=== PATIENT | female | born 1975 | race Caucasian/White ===

== ENCOUNTER 2019-06-20 05:11 | Inpatient (IN) | payer BC ==
[2019-06-20] MEDS ORDERED: Sodium Chloride 0.9% 10 ML SDV IV PRN (05:15)
[2019-06-20] MEDS ORDERED: Water For Irrigation,Sterile 1,000 ML Container IRR PRN (05:15)
[2019-06-20] MEDS ORDERED: Oxytocin/0.9 % Sodium Chloride 30 UNIT/500 ML BAG IV SCH ×2 (05:15)
[2019-06-20] MEDS ORDERED: Sodium Chloride 0.9% 10 ML Syringe FLUSH PRN (05:15)
[2019-06-20] MEDS ORDERED: Carboprost Tromethamine 250 MCG/1 ML Amp IM PRN (05:15)
[2019-06-20] MEDS ORDERED: Butorphanol 1 MG/ML SDV IVPUSH PRN (05:15)
[2019-06-20] MEDS ORDERED: Nalbuphine 10 MG/1 ML Vial IVPUSH PRN (05:15)
[2019-06-20] MEDS ORDERED: Methylergonovine 0.2 MG/1 ML Amp IM PRN (05:15)
[2019-06-20] MEDS ORDERED: Sodium Chloride 0.9% 2.5 ML Syringe FLUSH PRN (05:15)
[2019-06-20] MEDS ORDERED: Ondansetron 4 MG/2 ML SDV IVPUSH PRN (05:15)
[2019-06-20] MEDS ORDERED: Tranexamic Acid 1,000 MG in Sodium Chloride 0.9% 100 ML IV PRN (05:15)
[2019-06-20] MEDS ORDERED: Terbutaline 1 MG/ML SDV SUBCUT PRN (05:15)
[2019-06-20] MEDS ORDERED: Misoprostol 25 MCG (1/4 of 100 MCG) Tab VAG PRN ×2 (05:15)
[2019-06-20] MEDS ORDERED: Lidocaine 1% 50 ML MDV INJECT PRN (05:15)
[2019-06-20] MEDS ORDERED: Ampicillin 2 GM in Sodium Chloride 0.9% 100 ML IV ONE (05:15)
[2019-06-20] MEDS ORDERED: Misoprostol 200 MCG Tab PO PRN (05:15)
[2019-06-20] MEDS: Lactated Ringers 1,000 ML IV SCH ×3 (05:50→15:47)
[2019-06-20 06:08] LABS: BLOOD UREA NITROGEN,BUN 6 mg/dL (7.0-18.0); CARBON DIOXIDE,CO2 24.5 mmol/L (21.0-32.0); CHLORIDE,CL 102 mmol/L (98-107); GLUCOSE RANDOM 87 mg/dL (74-106); POTASSIUM,K 3.3 mmol/L (3.5-5.1); SODIUM,NA 137 mmol/L (136-145)
[2019-06-20] MEDS ORDERED: Labetalol 100 MG/20 ML MDV IVPUSH ONE (08:55)
[2019-06-20] MEDS: Ampicillin 1 GM in Sodium Chloride 0.9% 50 ML IV SCH ×2 (10:11→14:12)
[2019-06-20] MEDS ORDERED: Bupivacaine 0.25% 10 ML SDV ONE ×2 (13:09→16:05)
[2019-06-20] MEDS ORDERED: fentaNYL 100 MCG/2 ML SDV ONE (13:09)
--- NOTE | 2019-06-20 13:39 | PCM.PREANE ---
Preanesthetic Assessment - Procedure Proposed Procedure: anali - Anesthesia/Transfusion/Family Hx Anesthesia History: No Prior Anesthesia Additional History: hx of von willebrands disease - Review of Systems General: No Symptoms Pulmonary: No Symptoms Cardiovascular: No Symptoms Gastrointestinal: No Symptoms Neurological: No Symptoms Other: Reports: None - Physical Assessment Height: 1.7 m Weight: 92.533 kg - Lab Values: Laboratory Last Values WBC 8.57 K/uL (4.0-11.0) 06/20/19 05:28 RBC 4.30 M/uL (4.30-5.90) 06/20/19 05:28 Hgb 12.9 g/dL (12.0-16.0) 06/20/19 05:28 Hct 38.4 % (36.0-46.0) 06/20/19 05:28 MCV 89.3 fL (80.0-98.0) 06/20/19 05:28 MCH 30.0 pg (27.0-32.0) 06/20/19 05:28 MCHC 33.6 g/dL (31.0-37.0) 06/20/19 05:28 RDW Std Deviation 43.4 fl (28.0-62.0) 06/20/19 05:28 RDW Coeff of Toan 13 % (11.0-15.0) 06/20/19 05:28 Plt Count 191 K/uL (150-400) 06/20/19 05:28 MPV 11.30 fL (7.40-12.00) 06/20/19 05:28 Nucleated RBC % 0.0 /100WBC 06/20/19 05:28 Nucleated RBCs # 0 K/uL 06/20/19 05:28 INR 0.90 06/20/19 05:55 APTT 23.6 SEC (18.6-31.3) 06/20/19 05:55 Sodium 137 mmol/L (136-145) 06/20/19 05:28 Potassium 3.3 mmol/L (3.5-5.1) L 06/20/19 05:28 Chloride 102 mmol/L (98-107) 06/20/19 05:28 Carbon Dioxide 24.5 mmol/L (21.0-32.0) 06/20/19 05:28 BUN 6 mg/dL (7.0-18.0) L 06/20/19 05:28 Creatinine 1.0 mg/dL (0.6-1.0) 06/20/19 05:28 Est Cr Clr Drug Dosing 70.54 mL/min 06/20/19 05:28 Estimated GFR (MDRD) > 60.0 ml/min 06/20/19 05:28 Glucose 87 mg/dL (74-106) 06/20/19 05:28 Calcium 8.9 mg/dL (8.5-10.1) 06/20/19 05:28 Total Bilirubin 0.5 mg/dL (0.2-1.0) 06/20/19 05:28 AST 13 IU/L (15-37) L 06/20/19 05:28 ALT 18 IU/L (14-63) 06/20/19 05:28 Alkaline Phosphatase 100 U/L (46-116) 06/20/19 05:28 Total Protein 7.0 g/dL (6.4-8.2) 06/20/19 05:28 Albumin 2.8 g/dL (3.4-5.0) L 06/20/19 05:28 Globulin 4.2 g/dL (2.6-4.0) H 06/20/19 05:28 Albumin/Globulin Ratio 0.7 (0.9-1.6) L 06/20/19 05:28 Urine Color YELLOW 06/20/19 06:30 Urine Appearance CLEAR 06/20/19 06:30 Urine pH 6.5 (5.0-8.0) 06/20/19 06:30 Ur Specific [place] 1.010 (1.001-1.035) 06/20/19 06:30 Urine Protein NEGATIVE mg/dL (NEGATIVE) 06/20/19 06:30 Urine Glucose (UA) NEGATIVE mg/dL (NEGATIVE) 06/20/19 06:30 Urine Ketones NEGATIVE mg/dL (NEGATIVE) 06/20/19 06:30 Urine Occult Blood NEGATIVE (NEGATIVE) 06/20/19 06:30 Urine Nitrite NEGATIVE (NEGATIVE) 06/20/19 06:30 Urine Bilirubin NEGATIVE (NEGATIVE) 06/20/19 06:30 Urine Urobilinogen 0.2 EU/dL (<2.0) 06/20/19 06:30 Ur Leukocyte Esterase SMALL (NEGATIVE) H 06/20/19 06:30 Ur Random Creatinine 51.0 mg/dL 06/20/19 06:30 U Random Total Protein 11.3 mg/dL (<11.9) 06/20/19 06:30 Protein/Creatinin Ratio 0.2 06/20/19 06:30 Blood Type A POSITIVE 06/20/19 05:28 Antibody Screen NEGATIVE 06/20/19 05:28 - Allergies Allergies/Adverse Reactions: Allergies Allergy/AdvReac Type Severity Reaction Status Date / Time Sulfa (Sulfonamide Allergy Rash Verified 04/28/19 17:10 Antibiotics) PreAnesthesia Questionnaire PROOFREADER History: Reports: Psychiatric History: Reports: Anxiety Other Psychiatric History: In the past. Resolved now Hematologic History: Reports: Anticoagulation Therapy - Past Surgical History HEENT Surgical History: Reports: LASIK, Oral Surgery Musculoskeletal Surgical History: Reports: Other (See Below) Other Musculoskeletal Surgeries/Procedures:: ACL repair 2000 - SUBSTANCE USE Smoking Status *Q: Never Smoker Second Hand Smoke Exposure: No Recreational Drug Use History: No - HOME MEDS Home Medications: Home Meds Aspirin [Children's Aspirin] 81 mg PO DAILY 04/28/19 [History] Enoxaparin [Lovenox] 60 mg SQ BID 04/28/19 [History] Magnesium Oxide 400 mg PO DAILY 04/28/19 [History] Vit #76/Iron,Carb/Fa [Pnv 29-1 Tablet] 1 tab PO DAILY 04/28/19 [History ] - CURRENT (IN HOUSE) MEDS Current Meds: Current Medications Butorphanol Tartrate (Stadol) 1 mg IVPUSH Q1H PRN PRN Reason: Pain Carboprost Tromethamine (Hemabate Ds) 250 mcg IM ASDIRECTED PRN PRN Reason: Post Hemorrhage Lactated Ringer's (Ringers, Lactated) 1,000 mls @ 150 mls/hr IV ASDIRECTED LEANNE Last Admin: 06/20/19 05:50 Dose: 150 mls/hr Oxytocin/Sodium Chloride (Oxytocin 30 Unit/500 Ml-Ns) 30 unit in 500 mls @ 500 mls/hr IV TITRATE LEANNE Oxytocin/Sodium Chloride (Oxytocin 30 Unit/500 Ml-Ns) 30 unit in 500 mls @ 2 mls/hr IV TITRATE LEANNE; Protocol Last Titration: 06/20/19 12:27 Dose: 10 munits/min, 10 mls/hr Tranexamic Acid 1,000 mg/ (Sodium Chloride) 110 mls @ 660 mls/hr IV ONETIME PRN PRN Reason: Bleeding Ampicillin Sodium 1 gm/ Sodium (Chloride) 50 mls @ 100 mls/hr IV Q4H LEANNE Last Admin: 06/20/19 10:11 Dose: 100 mls/hr Lidocaine HCl (Xylocaine 1%) 50 ml INJECT ONETIME PRN PRN Reason: Laceration repair Methylergonovine Maleate (Methergine) 0.2 mg IM ASDIRECTED PRN PRN Reason: Post Hemorrhage Misoprostol (Cytotec) 200 mcg PO ONETIME PRN PRN Reason: Post Hemorrhage Misoprostol (Cytotec) 25 mcg VAG ONETIME PRN PRN Reason: Cervical Ripening Misoprostol (Cytotec) 25 mcg VAG Q4H PRN PRN Reason: Cervical Ripening Nalbuphine HCl (Nubain) 10 mg IVPUSH Q1H PRN PRN Reason: Pain (severe 7-10) Ondansetron HCl (Zofran) 4 mg IVPUSH Q4H PRN PRN Reason: Nausea/Vomiting Sodium Chloride (Saline Flush) 10 ml FLUSH ASDIRECTED PRN PRN Reason: Keep Vein Open Sodium Chloride (Saline Flush) 2.5 ml FLUSH ASDIRECTED PRN PRN Reason: Keep Vein Open Sodium Chloride (Normal Saline) 10 ml IV ASDIRECTED PRN PRN Reason: IV Use Sterile Water (Sterile Water For Irrigation) 1,000 ml IRR ASDIRECTED PRN PRN Reason: delivery Terbutaline Sulfate (Brethine) 0.25 mg SUBCUT ASDIRECTED PRN PRN Reason: Tacysystole Discontinued Medications Bupivacaine HCl (Sensorcaine-Mpf 0.25%) Confirm Administered Dose 10 ml .ROUTE .STK-MED ONE Stop: 06/20/19 13:10 Fentanyl (Sublimaze) Confirm Administered Dose 100 mcg .ROUTE .STK-MED ONE Stop: 06/20/19 13:10 Ampicillin Sodium 2 gm/ Sodium (Chloride) 100 mls @ 200 mls/hr IV ONETIME ONE Stop: 06/20/19 05:44 Last Admin: 06/20/19 05:50 Dose: 200 mls/hr Fentanyl/Bupivacaine HCl (Geuaykrm-Ikips-Bq 2 Mcg/Ml-0.125%) Confirm Administered Dose 100 mls @ as directed .ROUTE .STK-MED ONE Stop: 06/20/19 13:10 Labetalol HCl (Normodyne) 10 mg IVPUSH ONETIME ONE; Protocol Stop: 06/20/19 08:56 Last Admin: 06/20/19 09:23 Dose: 10 mg
[2019-06-20] MEDS ORDERED: Lidocaine 2% 5 ML SDV ONE (16:05)
[2019-06-20] MEDS ORDERED: Lidocaine 1% 50 ML MDV ONE (16:41)
--- NOTE | 2019-06-20 17:13 | PCM.OPNOTE ---
- General Post-Op/Procedure Note Date of Surgery/Procedure: 06/20/19 Operative Procedure(s): /1st laceration repaired Findings: Viable female APGARS 9, 9 weight 2910 gm. Spontaneous delivery of placenta with sanguinous fluid and clot noted--suspicious for marginal placental abruption Pre Op Diagnosis: 37/3 week IUP. Gestational hypertension. AMA. DVT Post-Op Diagnosis: Same Anesthesia Technique: Epidural Primary Surgeon: Vero Cotton Brass Molder: Velia Rodriguez Pathology: Placenta EBL in mLs: 300 Complications: none known Condition: Stable Free Text/Narrative:: Dictation [id number]
[2019-06-20] MEDS ORDERED: Aluminum Hydroxide/Magnesium Hydroxide/Simethicone Susp 30 ML Cup PO PRN (17:14)
[2019-06-20] MEDS ORDERED: Witch Hazel Medicated Pads 40/Jar TOP PRN (17:14)
[2019-06-20] MEDS ORDERED: Bisacodyl 10 MG Supp RECTAL PRN (17:14)
[2019-06-20] MEDS ORDERED: Acetaminophen 500 MG Tab PO PRN (17:14)
[2019-06-20] MEDS ORDERED: oxyCODONE 5 MG Tab PO PRN (17:14)
[2019-06-20] MEDS ORDERED: Ibuprofen 400 MG Tab PO PRN (17:14)
[2019-06-20] MEDS ORDERED: Benzocaine/Menthol 20%-0.5% Spray 78 GM Cannister TOP PRN (17:14)
[2019-06-20] MEDS ORDERED: Lanolin 100% Cream 7 GM Tube TOP PRN (17:14)
[2019-06-20] MEDS ORDERED: Hydrocortisone 2.5% Crm 30 GM Tube TOP PRN (17:14)
[2019-06-20] MEDS ORDERED: Ibuprofen 800 MG Tab PO PRN (17:14)
--- NOTE | 2019-06-20 18:10 | OR ---
SURGEON: Vero Cotton M.D. DATE OF PROCEDURE: 06/20/2019 PREOPERATIVE DIAGNOSES: 1. 37 and 3-week intrauterine . 2. Gestational hypertension. 3. Advanced maternal age. 4. Deep vein thrombosis during . POSTOPERATIVE DIAGNOSES: 1. 37 and 3-week intrauterine . 2. Gestational hypertension. 3. Advanced maternal age. 4. Deep vein thrombosis during . PROCEDURES: Spontaneous vaginal delivery with first-degree laceration, vaginally repaired. GELATIN MAKER UTILITY: MIRACLE Wang. ANESTHESIA: Epidural. ESTIMATED BLOOD LOSS: 300 mL. COMPLICATIONS: None known. FINDINGS: Viable female. score 9 at one minute and 9 at five minutes. Weight of 2910 g. Delivery of sanguinous fluid and blood clot spontaneously of the placenta with 3-vessel cord noted. The findings at the time of delivery of placenta are consistent with a marginal placental abruption. Placenta will be sent to Pathology for further analysis. DISPOSITION: The patient in LDRP and infant to nursery, stable. PROCEDURE DETAILS: Krystle is a 44-year-old; G4, P3; at 37 and 3 weeks' gestational age; who presented on the morning of 06/20/2019, for scheduled induction of labor due to gestational hypertension. The patient's labs are normal. Blood pressures are ranging 130s to 150s over 70s to 90s. heart tones 130s to 140s with variability. She is group B beta strep positive, so underwent IV ampicillin prophylaxis. Shortly after 9 a.m., the patient did have an acute deceleration 60s to 70s, recovered nicely with positional changes, IV fluid hydration and discontinuing the Pitocin. At that time, she was found to be 2 cm. Therefore, after recovery, was resumed Pitocin low dose and did not go over 10 milliunits for the duration of the day. The patient became increasingly uncomfortable and underwent regional anesthesia in the form of epidural. She did receive one dose of 10 mg IV labetalol during this interval. Blood pressures remained in the 130-150s/80-90s. She is denying headache. Blood pressures did go down to the 130s over 70s. She underwent regional anesthesia. She became more comfortable directly after this. She did have a few variables with late component decelerations noted. Once again, we reduced the Pitocin, positional change, IV fluid hydration, and the patient responded nicely to this. The patient underwent amniotomy shortly after 2 p.m. Slightly sanguinous fluid was noted. The patient was found to be 4.5 cm, 70% effaced, and -2 station at this juncture. The patient continued to progress more rapidly thereafter. Over the next 2 hours, she went from 4 cm to 7 cm and within the next 20 minutes, progressed to complete, 100% effaced, +2 station, and feeling the urge to push. Upon my arrival, the patient was placed in modified dorsal lithotomy position, was prepped and draped in the usual aseptic manner. With pushing efforts, was able to push to deliver 's head atraumatically spontaneously, followed by anterior shoulder, posterior shoulder, and remaining body without difficulty. There was clot noted at the time of delivery and sanguinous fluid once again. The 's oropharynx and nares were bulb suctioned. was handed off to mother with attending nursing staff at her side. Loop Sewer was also present. Cord was clamped x2 and cut. Cord arterial, cord venous, cord blood sampling were obtained. Light pressure was applied while the placenta was delivered spontaneously intact. Spontaneously, there was a small blood clot noted along the one peripheral edge of the placenta, and this will be sent to Pathology for analysis. Vigorous fundal uterine massage was then applied while 30 units of Pitocin was delivered in 500 mL of IV fluid. Upon inspection of cervix, vaginal sidewall and perineum, there was found to be 2 first-degree vaginal lacerations, repaired using 3-0 Vicryl in [id number] fashion. Hemostasis was thereafter evident. Uterus remained firm. Hemostasis remained evident. Sponge, instrument, and needle counts were correct. The patient will remain in LDRP. We will monitor blood pressures closely. in nursery. JEAN CARLOS / BRENDEN /[id number] MIKE
[2019-06-20] MEDS: Docusate Sodium 100 MG Cap PO PRN (20:36)
[2019-06-20] MEDS: Acetaminophen 500 MG Tab PO PRN (23:14)
--- NOTE | 2019-06-21 07:36 | PCM.PNPP ---
- General Info Date of Service: 06/21/19 Admission Dx/Problem (Free Text): Krystle is a 44 yo G4 now P4 On PPD 1 after a at 37+3. She is doing well this AM with about 3 hours of sleep and minimal pain. States she is excited to go home as soon as she is able. Bleeding has minimized from yesterday. She is urinating well. No BMs as of this AM. She states she has an appetite. Functional Status: Reports: Pain Controlled (with Tylenol), Ambulating, Urinating, Other (Minimal pain but noticeable left inguinal discomfort that she states was present throughout ) - Review of Systems General: Reports: Appetite Pulmonary: Reports: No Symptoms Cardiovascular: Reports: No Symptoms Gastrointestinal: Reports: No Symptoms Genitourinary: Reports: No Symptoms Neurological: Reports: No Symptoms Psychiatric: Reports: No Symptoms - General Info Date of Service: 06/21/19 - Patient Data Vital Signs - Most Recent: Last Vital Signs Temp 36.6 C 06/21/19 05:06 Pulse 71 06/21/19 05:06 Resp 17 06/21/19 05:06 BP 111/82 06/21/19 05:06 Pulse Ox 98 06/21/19 05:06 Weight - Most Recent: 92.533 kg Lab Results - Last 24 Hours: Laboratory Results - last 24 hr 06/20/19 06/21/19 Range/Units 16:40 05:25 WBC 16.84 H (4.0-11.0) K/uL RBC 3.67 L (4.30-5.90) M/uL Hgb 11.0 L (12.0-16.0) g/dL Hct 32.6 L (36.0-46.0) % MCV 88.8 (80.0-98.0) fL MCH 30.0 (27.0-32.0) pg MCHC 33.7 (31.0-37.0) g/dL RDW Std Deviation 43.6 (28.0-62.0) fl RDW Coeff of Toan 14 (11.0-15.0) % Plt Count 121 L (150-400) K/uL MPV 10.80 (7.40-12.00) fL Nucleated RBC % 0.0 /100WBC Nucleated RBCs # 0 K/uL Cord ABG pH 7.294 (7.18-7.38) Cord ABG Base Excess -8 (-10--2) Cord VBG pH 7.303 (7.25-7.45) Cord VBG Base Excess -7 (-10--2) Med Orders - Current: Current Medications Acetaminophen (Tylenol Extra Strength) 500 mg PO Q4H PRN PRN Reason: Pain Acetaminophen (Tylenol Extra Strength) 1,000 mg PO Q4H PRN PRN Reason: Pain Last Admin: 06/20/19 23:14 Dose: 1,000 mg Al Hydroxide/Mg Hydroxide (Mag-Al Plus) 30 ml PO Q8H PRN PRN Reason: Heartburn Benzocaine/Menthol (Dermoplast Pain Relief 20%-0.5% [place]) 78 gm TOP ASDIRECTED PRN PRN Reason: Perineal Comfort Measure Last Admin: 06/20/19 23:31 Dose: 1 canister Bisacodyl (Dulcolax) 10 mg RECTAL ONETIME PRN PRN Reason: Constipation Carboprost Tromethamine (Hemabate Ds) 250 mcg IM ASDIRECTED PRN PRN Reason: Post Hemorrhage Docusate Sodium (Colace) 100 mg PO BID PRN PRN Reason: Constipation Last Admin: 06/20/19 20:36 Dose: 100 mg Emollient Ointment (Lansinoh Hpa) 0 gm TOP ASDIRECTED PRN PRN Reason: Sore Nipples Last Admin: 06/20/19 23:30 Dose: 1 tube Hydrocortisone (Proctozone-Hc 2.5% Crm) 1 gm TOP 6XDAY PRN PRN Reason: Itching Lactated Ringer's (Ringers, Lactated) 1,000 mls @ 150 mls/hr IV ASDIRECTED LEANNE Last Admin: 06/20/19 15:47 Dose: 150 mls/hr Oxytocin/Sodium Chloride (Oxytocin 30 Unit/500 Ml-Ns) 30 unit in 500 mls @ 500 mls/hr IV TITRATE LEANNE Oxytocin/Sodium Chloride (Oxytocin 30 Unit/500 Ml-Ns) 30 unit in 500 mls @ 2 mls/hr IV TITRATE LEANNE; Protocol Last Titration: 06/20/19 16:45 Dose: 500 munits/min, 500 mls/hr Tranexamic Acid 1,000 mg/ (Sodium Chloride) 110 mls @ 660 mls/hr IV ONETIME PRN PRN Reason: Bleeding Ibuprofen (Motrin) 400 mg PO Q4H PRN PRN Reason: Pain Ibuprofen (Motrin) 800 mg PO Q6H PRN PRN Reason: Pain Methylergonovine Maleate (Methergine) 0.2 mg IM ASDIRECTED PRN PRN Reason: Post Hemorrhage Nalbuphine HCl (Nubain) 10 mg IVPUSH Q1H PRN PRN Reason: Pain (severe 7-10) Ondansetron HCl (Zofran) 4 mg IVPUSH Q4H PRN PRN Reason: Nausea/Vomiting Oxycodone HCl (Oxycodone) 5 mg PO Q2H PRN PRN Reason: Pain Sodium Chloride (Saline Flush) 10 ml FLUSH ASDIRECTED PRN PRN Reason: Keep Vein Open Sodium Chloride (Saline Flush) 2.5 ml FLUSH ASDIRECTED PRN PRN Reason: Keep Vein Open Sodium Chloride (Normal Saline) 10 ml IV ASDIRECTED PRN PRN Reason: IV Use Sterile Water (Sterile Water For Irrigation) 1,000 ml IRR ASDIRECTED PRN PRN Reason: delivery Alejandro Rogers (Damion) 1 pad TOP ASDIRECTED PRN PRN Reason: comfort care Last Admin: 06/20/19 23:31 Dose: 1 canister Discontinued Medications Bupivacaine HCl (Sensorcaine-Mpf 0.25%) Confirm Administered Dose 10 ml .ROUTE .STK-MED ONE Stop: 06/20/19 13:10 Last Admin: 06/20/19 21:33 Dose: Not Given Bupivacaine HCl (Sensorcaine-Mpf 0.25%) Confirm Administered Dose 10 ml .ROUTE .STK-MED ONE Stop: 06/20/19 16:06 Last Admin: 06/20/19 21:33 Dose: Not Given Butorphanol Tartrate (Stadol) 1 mg IVPUSH Q1H PRN PRN Reason: Pain Fentanyl (Sublimaze) Confirm Administered Dose 100 mcg .ROUTE .STK-MED ONE Stop: 06/20/19 13:10 Last Admin: 06/20/19 21:33 Dose: Not Given Ampicillin Sodium 2 gm/ Sodium (Chloride) 100 mls @ 200 mls/hr IV ONETIME ONE Stop: 06/20/19 05:44 Last Admin: 06/20/19 05:50 Dose: 200 mls/hr Ampicillin Sodium 1 gm/ Sodium (Chloride) 50 mls @ 100 mls/hr IV Q4H LEANNE Last Admin: 06/20/19 14:12 Dose: 100 mls/hr Fentanyl/Bupivacaine HCl (Hjhftlhl-Aluhq-Xk 2 Mcg/Ml-0.125%) Confirm Administered Dose 100 mls @ as directed .ROUTE .STK-MED ONE Stop: 06/20/19 13:10 Last Admin: 06/20/19 21:32 Dose: Not Given Labetalol HCl (Normodyne) 10 mg IVPUSH ONETIME ONE; Protocol Stop: 06/20/19 08:56 Last Admin: 06/20/19 09:23 Dose: 10 mg Lidocaine (Xylocaine-Mpf 2%) Confirm Administered Dose 5 ml .ROUTE .STK-MED ONE Stop: 06/20/19 16:06 Last Admin: 06/20/19 21:33 Dose: Not Given Lidocaine HCl (Xylocaine 1%) 50 ml INJECT ONETIME PRN PRN Reason: Laceration repair Lidocaine HCl (Xylocaine 1%) Confirm Administered Dose 50 ml .ROUTE .STK-MED ONE Stop: 06/20/19 16:42 Last Admin: 06/20/19 21:33 Dose: Not Given Misoprostol (Cytotec) 200 mcg PO ONETIME PRN PRN Reason: Post Hemorrhage Misoprostol (Cytotec) 25 mcg VAG ONETIME PRN PRN Reason: Cervical Ripening Misoprostol (Cytotec) 25 mcg VAG Q4H PRN PRN Reason: Cervical Ripening Terbutaline Sulfate (Brethine) 0.25 mg SUBCUT ASDIRECTED PRN PRN Reason: Tacysystole - Infant Interaction Infant Disposition, : in Room with Family (Dad holding [place]) Interaction: Holding Feeding: Breastfed ; Nursed Well, Continues to Breastfeed Support Person: - Recovery Exam Fundal Tone: Firm Fundal Level: 1 Fingerbreadths Below Umbilicus Fundal Placement: Midline Lochia Amount: Small Lochia Color: Rubra/Red Episiotomy/Laceration: Approximated Bladder Status: Voiding Urinary Elimination: Voided - Exam General: Alert, Oriented Lungs: Clear to Auscultation, Normal Respiratory Effort Cardiovascular: Regular Rate, Regular Rhythm, No Murmurs GI/Abdominal Exam: Soft, Non-Tender (Some tenderness with firm palpation of uterus) Extremities: No Pedal Edema Skin: Warm, Dry, Intact Neurological: No New Focal Deficit Psy/Mental Status: Alert, Normal Affect, Normal Mood - Problem List & Annotations (1) Gestational hypertension SNOMED Code(s): 261471760 Code(s): O13.9 - GESTATIONAL HTN W/O SIGNIFICANT PROTEINURIA, UNSP TRIMESTER Status: Resolved Current Visit: Yes Annotation/Comment:: BPs have been stable at 111-118/76-82 over the course of last night and this AM. (2) AMA (advanced maternal age) multigravida 35+ SNOMED Code(s): 997608097 Code(s): O09.529 - SUPERVISION OF ELDERLY MULTIGRAVIDA, UNSPECIFIED TRIMESTER Status: Acute Current Visit: Yes (3) Thromboembolism during SNOMED Code(s): 271139 Code(s): O88.219 - THROMBOEMBOLISM IN , UNSPECIFIED TRIMESTER Status: Acute Current Visit: Yes Annotation/Comment:: Will begin Lovenox this afternoon. (4) Vaginal delivery SNOMED Code(s): 021715568 Code(s): O80 - ENCOUNTER FOR FULL-TERM UNCOMPLICATED DELIVERY Status: Resolved Current Visit: Yes - Problem List Review Problem List Initiated/Reviewed/Updated: Yes - Assessment Assessment:: Krystle is a 44 yo G4 now P4 s/p uncomplicated at 37+3 weeks currently PPD# 1 course complicated by gestational hypertension, AMA, and DVT. Patient currently doing well. Patient hemodynamically stable. Lochia is currently appropriate. Pain adequately controlled. Currently successfully. - Plan Plan:: 1. Continue to monitor vital signs and signs suggestive of infection. 2. Continue to monitor lochia. 3. Continue Tylenol for pain relief. 4. Encourage mother-baby bonding and interaction. 5. Encourage ambulation. 6. Encourage adequate hydration. 7. Pelvic rest for 6 weeks. 8. Anticipate discharge tomorrow (06/22/19). Patient to follow up in [address] Cotton.
[2019-06-21] MEDS: Acetaminophen 500 MG Tab PO PRN ×2 (08:23→21:52)
--- NOTE | 2019-06-21 08:44 | PCM.PNPP ---
- General Info Date of Service: 06/21/19 Functional Status: Reports: Pain Controlled, Tolerating Diet, Ambulating, Urinating - Review of Systems General: Reports: Fatigue. Denies: Fever, Weakness Pulmonary: Denies: Shortness of Breath Cardiovascular: Denies: Chest Pain, Palpitations, Lightheadedness Gastrointestinal: Denies: Abdominal Pain, Nausea, Vomiting Genitourinary: Denies: Flank Pain Musculoskeletal: Reports: No Symptoms Skin: Reports: No Symptoms Neurological: Reports: No Symptoms Psychiatric: Reports: No Symptoms - General Info Date of Service: 06/21/19 - Patient Data Vital Signs - Most Recent: Last Vital Signs Temp 37.0 C 06/21/19 07:48 Pulse 77 06/21/19 07:48 Resp 18 06/21/19 07:48 BP 134/85 06/21/19 07:48 Pulse Ox 97 06/21/19 07:48 Weight - Most Recent: 92.533 kg Lab Results - Last 24 Hours: Laboratory Results - last 24 hr 06/20/19 06/21/19 Range/Units 16:40 05:25 WBC 16.84 H (4.0-11.0) K/uL RBC 3.67 L (4.30-5.90) M/uL Hgb 11.0 L (12.0-16.0) g/dL Hct 32.6 L (36.0-46.0) % MCV 88.8 (80.0-98.0) fL MCH 30.0 (27.0-32.0) pg MCHC 33.7 (31.0-37.0) g/dL RDW Std Deviation 43.6 (28.0-62.0) fl RDW Coeff of Toan 14 (11.0-15.0) % Plt Count 121 L (150-400) K/uL MPV 10.80 (7.40-12.00) fL Nucleated RBC % 0.0 /100WBC Nucleated RBCs # 0 K/uL Cord ABG pH 7.294 (7.18-7.38) Cord ABG Base Excess -8 (-10--2) Cord VBG pH 7.303 (7.25-7.45) Cord VBG Base Excess -7 (-10--2) Med Orders - Current: Current Medications Acetaminophen (Tylenol Extra Strength) 500 mg PO Q4H PRN PRN Reason: Pain Acetaminophen (Tylenol Extra Strength) 1,000 mg PO Q4H PRN PRN Reason: Pain Last Admin: 06/21/19 08:23 Dose: 1,000 mg Al Hydroxide/Mg Hydroxide (Mag-Al Plus) 30 ml PO Q8H PRN PRN Reason: Heartburn Benzocaine/Menthol (Dermoplast Pain Relief 20%-0.5% [place]) 78 gm TOP ASDIRECTED PRN PRN Reason: Perineal Comfort Measure Last Admin: 06/20/19 23:31 Dose: 1 canister Bisacodyl (Dulcolax) 10 mg RECTAL ONETIME PRN PRN Reason: Constipation Carboprost Tromethamine (Hemabate Ds) 250 mcg IM ASDIRECTED PRN PRN Reason: Post Hemorrhage Docusate Sodium (Colace) 100 mg PO BID PRN PRN Reason: Constipation Last Admin: 06/20/19 20:36 Dose: 100 mg Emollient Ointment (Lansinoh Hpa) 0 gm TOP ASDIRECTED PRN PRN Reason: Sore Nipples Last Admin: 06/20/19 23:30 Dose: 1 tube Hydrocortisone (Proctozone-Hc 2.5% Crm) 1 gm TOP 6XDAY PRN PRN Reason: Itching Lactated Ringer's (Ringers, Lactated) 1,000 mls @ 150 mls/hr IV ASDIRECTED LEANNE Last Admin: 06/20/19 15:47 Dose: 150 mls/hr Oxytocin/Sodium Chloride (Oxytocin 30 Unit/500 Ml-Ns) 30 unit in 500 mls @ 500 mls/hr IV TITRATE LEANNE Oxytocin/Sodium Chloride (Oxytocin 30 Unit/500 Ml-Ns) 30 unit in 500 mls @ 2 mls/hr IV TITRATE LEANNE; Protocol Last Titration: 06/20/19 16:45 Dose: 500 munits/min, 500 mls/hr Tranexamic Acid 1,000 mg/ (Sodium Chloride) 110 mls @ 660 mls/hr IV ONETIME PRN PRN Reason: Bleeding Ibuprofen (Motrin) 400 mg PO Q4H PRN PRN Reason: Pain Ibuprofen (Motrin) 800 mg PO Q6H PRN PRN Reason: Pain Methylergonovine Maleate (Methergine) 0.2 mg IM ASDIRECTED PRN PRN Reason: Post Hemorrhage Nalbuphine HCl (Nubain) 10 mg IVPUSH Q1H PRN PRN Reason: Pain (severe 7-10) Ondansetron HCl (Zofran) 4 mg IVPUSH Q4H PRN PRN Reason: Nausea/Vomiting Oxycodone HCl (Oxycodone) 5 mg PO Q2H PRN PRN Reason: Pain Sodium Chloride (Saline Flush) 10 ml FLUSH ASDIRECTED PRN PRN Reason: Keep Vein Open Sodium Chloride (Saline Flush) 2.5 ml FLUSH ASDIRECTED PRN PRN Reason: Keep Vein Open Sodium Chloride (Normal Saline) 10 ml IV ASDIRECTED PRN PRN Reason: IV Use Sterile Water (Sterile Water For Irrigation) 1,000 ml IRR ASDIRECTED PRN PRN Reason: delivery Alejandro Rogers (Tucks) 1 pad TOP ASDIRECTED PRN PRN Reason: comfort care Last Admin: 06/20/19 23:31 Dose: 1 canister Discontinued Medications Bupivacaine HCl (Sensorcaine-Mpf 0.25%) Confirm Administered Dose 10 ml .ROUTE .STK-MED ONE Stop: 06/20/19 13:10 Last Admin: 06/20/19 21:33 Dose: Not Given Bupivacaine HCl (Sensorcaine-Mpf 0.25%) Confirm Administered Dose 10 ml .ROUTE .STK-MED ONE Stop: 06/20/19 16:06 Last Admin: 06/20/19 21:33 Dose: Not Given Butorphanol Tartrate (Stadol) 1 mg IVPUSH Q1H PRN PRN Reason: Pain Fentanyl (Sublimaze) Confirm Administered Dose 100 mcg .ROUTE .STK-MED ONE Stop: 06/20/19 13:10 Last Admin: 06/20/19 21:33 Dose: Not Given Ampicillin Sodium 2 gm/ Sodium (Chloride) 100 mls @ 200 mls/hr IV ONETIME ONE Stop: 06/20/19 05:44 Last Admin: 06/20/19 05:50 Dose: 200 mls/hr Ampicillin Sodium 1 gm/ Sodium (Chloride) 50 mls @ 100 mls/hr IV Q4H LEANNE Last Admin: 06/20/19 14:12 Dose: 100 mls/hr Fentanyl/Bupivacaine HCl (Qnuuoiee-Buibq-Jj 2 Mcg/Ml-0.125%) Confirm Administered Dose 100 mls @ as directed .ROUTE .STK-MED ONE Stop: 06/20/19 13:10 Last Admin: 06/20/19 21:32 Dose: Not Given Labetalol HCl (Normodyne) 10 mg IVPUSH ONETIME ONE; Protocol Stop: 06/20/19 08:56 Last Admin: 06/20/19 09:23 Dose: 10 mg Lidocaine (Xylocaine-Mpf 2%) Confirm Administered Dose 5 ml .ROUTE .STK-MED ONE Stop: 06/20/19 16:06 Last Admin: 06/20/19 21:33 Dose: Not Given Lidocaine HCl (Xylocaine 1%) 50 ml INJECT ONETIME PRN PRN Reason: Laceration repair Lidocaine HCl (Xylocaine 1%) Confirm Administered Dose 50 ml .ROUTE .STK-MED ONE Stop: 06/20/19 16:42 Last Admin: 06/20/19 21:33 Dose: Not Given Misoprostol (Cytotec) 200 mcg PO ONETIME PRN PRN Reason: Post Hemorrhage Misoprostol (Cytotec) 25 mcg VAG ONETIME PRN PRN Reason: Cervical Ripening Misoprostol (Cytotec) 25 mcg VAG Q4H PRN PRN Reason: Cervical Ripening Terbutaline Sulfate (Brethine) 0.25 mg SUBCUT ASDIRECTED PRN PRN Reason: Tacysystole - Infant Interaction Disposition, : [place] in Room with Family (Dad holding [place]anca) Infant Interaction: Holding Feeding: Breastfed Infant; Nursed Well, Continues to Breastfeed Support Person: - Recovery Exam Fundal Tone: Firm Fundal Level: 1 Fingerbreadths Below Umbilicus Fundal Placement: Midline Lochia Amount: Small Lochia Color: Rubra/Red Episiotomy/Laceration: Approximated Bladder Status: Voiding Urinary Elimination: Voided - Exam General: Alert, Oriented Lungs: Normal Respiratory Effort Cardiovascular: Regular Rate, Regular Rhythm GI/Abdominal Exam: Normal Bowel Sounds, Soft Extremities: Pedal Edema (trace). No: Francisca's Sign Skin: Warm, Dry, Intact Psy/Mental Status: Alert, Normal Affect, Normal Mood - Problem List & Annotations (1) Vaginal delivery SNOMED Code(s): 878610247 Code(s): O80 - ENCOUNTER FOR FULL-TERM UNCOMPLICATED DELIVERY Status: Acute Current Visit: Yes - Problem List Review Problem List Initiated/Reviewed/Updated: Yes - My Orders Last 24 Hours: My Active Orders 06/20/19 17:14 Patient Status [ADT] Routine May Shower [RC] ASDIRECTED Notify Provider Vital Signs [RC] ASDIRECTED Up ad Dali [RC] ASDIRECTED Vital Signs [RC] PER UNIT ROUTINE Acetaminophen [Tylenol Extra Strength] 1,000 mg PO Q4H PRN Acetaminophen [Tylenol Extra Strength] 500 mg PO Q4H PRN Alum Hydrox/Mag Hydrox/Simeth [Mag-Al Plus] 30 ml PO Q8H PRN Benzocaine/Menthol [Dermoplast Pain Relief 20%-0.5% [place]] 78 gm TOP ASDIRECTED PRN Bisacodyl [Dulcolax] 10 mg RECTAL ONETIME PRN Docusate Sodium [Colace] 100 mg PO BID PRN Hydrocortisone [Proctozone-HC 2.5% Crm] 1 gm TOP 6XDAY PRN Ibuprofen [Motrin] 400 mg PO Q4H PRN Ibuprofen [Motrin] 800 mg PO Q6H PRN Lanolin [Lansinoh HPA] See Dose Instructions TOP ASDIRECTED PRN Witch Sue [Tucks] 1 pad TOP ASDIRECTED PRN oxyCODONE 5 mg PO Q2H PRN Assess Lochia [WOMSER] Per Unit Routine Assess Uterine Involution [WOMSER] Per Unit Routine Ice Therapy [OM.PC] Per Unit Routine Perineal Care [OM.PC] Per Unit Routine Peripheral IV Discontinue [OM.PC] Routine Sitz Bath [OM.PC] Per Unit Routine 06/20/19 Dinner Regular Diet [DIET] - Assessment Assessment:: PPD 1 status post DVT Gestational hypertension - Plan Plan:: Blood pressures are improved--110/70s-130/80s. She denies headache. Will resume lovenox this evening. Continue PP cares.
[2019-06-21] MEDS: Docusate Sodium 100 MG Cap PO PRN (09:15)
[2019-06-21] MEDS: Enoxaparin 100 MG/1 ML Syringe SUBCUT SCH (19:37)
[2019-06-22] MEDS: Acetaminophen 500 MG Tab PO PRN (04:38)
[2019-06-22] MEDS: Enoxaparin 100 MG/1 ML Syringe SUBCUT SCH (06:44)
--- NOTE | 2019-06-22 08:09 | PCM.PNPP ---
<Velia Rodriguez E - Last Filed: 06/22/19 08:04> - General Info Date of Service: 06/22/19 Admission Dx/Problem (Free Text): Krystle is a 44 yo G4 now P4 On PPD 2 after a at 37+3. She is doing well once again this AM. She has minimal to no pain. States she still very excited to go home as soon as she is able. Denies issues with urinating. Still no BM as of this AM, but has been passing plenty of gas. She states she has an appetite. Functional Status: Reports: Pain Controlled, Tolerating Diet, Ambulating, Urinating - Review of Systems General: Reports: Appetite. Denies: Fever, Chills Pulmonary: Denies: Shortness of Breath, Pleuritic Chest Pain Cardiovascular: Denies: Chest Pain, Edema Gastrointestinal: Reports: Other (Some discomfort with movement). Denies: Nausea, Vomiting Genitourinary: Reports: Other (No issues with laceration repairs or pain/ burning of her bottom). Denies: Dysuria Neurological: Denies: Dizziness, Headache Psychiatric: Reports: No Symptoms - General Info Date of Service: 06/22/19 - Patient Data Vital Signs - Most Recent: Last Vital Signs Temp 36.5 C 06/22/19 05:05 Pulse 95 06/22/19 05:05 Resp 16 06/22/19 05:05 BP 142/87 H 06/22/19 05:05 Pulse Ox 96 06/22/19 05:05 Weight - Most Recent: 92.533 kg Med Orders - Current: Current Medications Acetaminophen (Tylenol Extra Strength) 500 mg PO Q4H PRN PRN Reason: Pain Acetaminophen (Tylenol Extra Strength) 1,000 mg PO Q4H PRN PRN Reason: Pain Last Admin: 06/22/19 04:38 Dose: 1,000 mg Al Hydroxide/Mg Hydroxide (Mag-Al Plus) 30 ml PO Q8H PRN PRN Reason: Heartburn Benzocaine/Menthol (Dermoplast Pain Relief 20%-0.5% [place]) 78 gm TOP ASDIRECTED PRN PRN Reason: Perineal Comfort Measure Last Admin: 06/20/19 23:31 Dose: 1 canister Bisacodyl (Dulcolax) 10 mg RECTAL ONETIME PRN PRN Reason: Constipation Carboprost Tromethamine (Hemabate Ds) 250 mcg IM ASDIRECTED PRN PRN Reason: Post Hemorrhage Docusate Sodium (Colace) 100 mg PO BID PRN PRN Reason: Constipation Last Admin: 06/21/19 09:15 Dose: 100 mg Emollient Ointment (Lansinoh Hpa) 0 gm TOP ASDIRECTED PRN PRN Reason: Sore Nipples Last Admin: 06/20/19 23:30 Dose: 1 tube Enoxaparin Sodium (Lovenox) 80 mg SUBCUT Q12H LEANNE Last Admin: 06/22/19 06:44 Dose: 80 mg Hydrocortisone (Proctozone-Hc 2.5% Crm) 1 gm TOP 6XDAY PRN PRN Reason: Itching Lactated Ringer's (Ringers, Lactated) 1,000 mls @ 150 mls/hr IV ASDIRECTED LEANNE Last Admin: 06/20/19 15:47 Dose: 150 mls/hr Oxytocin/Sodium Chloride (Oxytocin 30 Unit/500 Ml-Ns) 30 unit in 500 mls @ 500 mls/hr IV TITRATE LEANNE Oxytocin/Sodium Chloride (Oxytocin 30 Unit/500 Ml-Ns) 30 unit in 500 mls @ 2 mls/hr IV TITRATE LEANNE; Protocol Last Titration: 06/20/19 16:45 Dose: 500 munits/min, 500 mls/hr Tranexamic Acid 1,000 mg/ (Sodium Chloride) 110 mls @ 660 mls/hr IV ONETIME PRN PRN Reason: Bleeding Ibuprofen (Motrin) 400 mg PO Q4H PRN PRN Reason: Pain Ibuprofen (Motrin) 800 mg PO Q6H PRN PRN Reason: Pain Methylergonovine Maleate (Methergine) 0.2 mg IM ASDIRECTED PRN PRN Reason: Post Hemorrhage Nalbuphine HCl (Nubain) 10 mg IVPUSH Q1H PRN PRN Reason: Pain (severe 7-10) Ondansetron HCl (Zofran) 4 mg IVPUSH Q4H PRN PRN Reason: Nausea/Vomiting Oxycodone HCl (Oxycodone) 5 mg PO Q2H PRN PRN Reason: Pain Sodium Chloride (Saline Flush) 10 ml FLUSH ASDIRECTED PRN PRN Reason: Keep Vein Open Sodium Chloride (Saline Flush) 2.5 ml FLUSH ASDIRECTED PRN PRN Reason: Keep Vein Open Sodium Chloride (Normal Saline) 10 ml IV ASDIRECTED PRN PRN Reason: IV Use Sterile Water (Sterile Water For Irrigation) 1,000 ml IRR ASDIRECTED PRN PRN Reason: delivery Alejandro Rogers (Tucks) 1 pad TOP ASDIRECTED PRN PRN Reason: comfort care Last Admin: 06/20/19 23:31 Dose: 1 canister Discontinued Medications Bupivacaine HCl (Sensorcaine-Mpf 0.25%) Confirm Administered Dose 10 ml .ROUTE .STK-MED ONE Stop: 06/20/19 13:10 Last Admin: 06/20/19 21:33 Dose: Not Given Bupivacaine HCl (Sensorcaine-Mpf 0.25%) Confirm Administered Dose 10 ml .ROUTE .STK-MED ONE Stop: 06/20/19 16:06 Last Admin: 06/20/19 21:33 Dose: Not Given Butorphanol Tartrate (Stadol) 1 mg IVPUSH Q1H PRN PRN Reason: Pain Fentanyl (Sublimaze) Confirm Administered Dose 100 mcg .ROUTE .STK-MED ONE Stop: 06/20/19 13:10 Last Admin: 06/20/19 21:33 Dose: Not Given Ampicillin Sodium 2 gm/ Sodium (Chloride) 100 mls @ 200 mls/hr IV ONETIME ONE Stop: 06/20/19 05:44 Last Admin: 06/20/19 05:50 Dose: 200 mls/hr Ampicillin Sodium 1 gm/ Sodium (Chloride) 50 mls @ 100 mls/hr IV Q4H LEANNE Last Admin: 06/20/19 14:12 Dose: 100 mls/hr Fentanyl/Bupivacaine HCl (Ohpikrvr-Mayjv-Kp 2 Mcg/Ml-0.125%) Confirm Administered Dose 100 mls @ as directed .ROUTE .STK-MED ONE Stop: 06/20/19 13:10 Last Admin: 06/20/19 21:32 Dose: Not Given Labetalol HCl (Normodyne) 10 mg IVPUSH ONETIME ONE; Protocol Stop: 06/20/19 08:56 Last Admin: 06/20/19 09:23 Dose: 10 mg Lidocaine (Xylocaine-Mpf 2%) Confirm Administered Dose 5 ml .ROUTE .STK-MED ONE Stop: 06/20/19 16:06 Last Admin: 06/20/19 21:33 Dose: Not Given Lidocaine HCl (Xylocaine 1%) 50 ml INJECT ONETIME PRN PRN Reason: Laceration repair Lidocaine HCl (Xylocaine 1%) Confirm Administered Dose 50 ml .ROUTE .STK-MED ONE Stop: 06/20/19 16:42 Last Admin: 06/20/19 21:33 Dose: Not Given Misoprostol (Cytotec) 200 mcg PO ONETIME PRN PRN Reason: Post Hemorrhage Misoprostol (Cytotec) 25 mcg VAG ONETIME PRN PRN Reason: Cervical Ripening Misoprostol (Cytotec) 25 mcg VAG Q4H PRN PRN Reason: Cervical Ripening Terbutaline Sulfate (Brethine) 0.25 mg SUBCUT ASDIRECTED PRN PRN Reason: Tacysystole - Infant Interaction Infant Disposition, : at Bedside Interaction: Holding (Mom holding [place]) Feeding: Breastfed ; Nursed Well, Continues to Breastfeed Support Person: - Recovery Exam Fundal Tone: Firm Fundal Level: 1 Fingerbreadths Below Umbilicus Fundal Placement: Right Lochia Amount: Scant Lochia Color: Rubra/Red Other Perinuem Description: 1st degree laceration Bladder Status: Voiding Urinary Elimination: Voided - Exam General: Alert, Oriented, Cooperative Lungs: Clear to Auscultation, Normal Respiratory Effort Cardiovascular: Regular Rate, Regular Rhythm, No Murmurs Neurological: No New Focal Deficit Psy/Mental Status: Alert, Normal Affect, Normal Mood - Problem List & Annotations (1) Gestational hypertension SNOMED Code(s): 663819765 Code(s): O13.9 - GESTATIONAL HTN W/O SIGNIFICANT PROTEINURIA, UNSP TRIMESTER Status: Acute Current Visit: Yes Annotation/Comment:: BPs have been between 142-145/85-87 in the last 24 hrs (2) AMA (advanced maternal age) multigravida 35+ SNOMED Code(s): 352517210 Code(s): O09.529 - SUPERVISION OF ELDERLY MULTIGRAVIDA, UNSPECIFIED TRIMESTER Status: Acute Current Visit: Yes (3) Thromboembolism during SNOMED Code(s): 200001 Code(s): O88.219 - THROMBOEMBOLISM IN , UNSPECIFIED TRIMESTER Status: Acute Current Visit: Yes Annotation/Comment:: Began 80 mg Lovenox subQ q12 hours last night. Two doses given at this time since delivery. (4) Vaginal delivery SNOMED Code(s): 921923619 Code(s): O80 - ENCOUNTER FOR FULL-TERM UNCOMPLICATED DELIVERY Status: Resolved Current Visit: Yes - Problem List Review Problem List Initiated/Reviewed/Updated: Yes - Assessment Assessment:: Krystle is a 44 yo G4 now P4 s/p uncomplicated at 37+3 weeks currently PPD# 2. course complicated by gestational hypertension, AMA, and DVT. Patient is doing well. She is hemodynamically stable. Lochia is appropriate. Pain adequately controlled. Currently successfully. - Plan Plan:: Plan for discharge today. Pain control with OTC Tylenol upon discharge. Pelvic rest for 6 weeks. Adequate hydration. Continue ambulating as much as possible. Patient to follow up in [address] Cotton. <Vero Cotton - Last Filed: 06/22/19 08:47> - Patient Data Vital Signs - Most Recent: Last Vital Signs Temp 36.5 C 06/22/19 05:05 Pulse 95 06/22/19 05:05 Resp 16 06/22/19 05:05 BP 142/87 H 06/22/19 05:05 Pulse Ox 96 06/22/19 05:05 Med Orders - Current: Current Medications Acetaminophen (Tylenol Extra Strength) 500 mg PO Q4H PRN PRN Reason: Pain Acetaminophen (Tylenol Extra Strength) 1,000 mg PO Q4H PRN PRN Reason: Pain Last Admin: 06/22/19 04:38 Dose: 1,000 mg Al Hydroxide/Mg Hydroxide (Mag-Al Plus) 30 ml PO Q8H PRN PRN Reason: Heartburn Benzocaine/Menthol (Dermoplast Pain Relief 20%-0.5% [place]) 78 gm TOP ASDIRECTED PRN PRN Reason: Perineal Comfort Measure Last Admin: 06/20/19 23:31 Dose: 1 canister Bisacodyl (Dulcolax) 10 mg RECTAL ONETIME PRN PRN Reason: Constipation Carboprost Tromethamine (Hemabate Ds) 250 mcg IM ASDIRECTED PRN PRN Reason: Post Hemorrhage Docusate Sodium (Colace) 100 mg PO BID PRN PRN Reason: Constipation Last Admin: 06/21/19 09:15 Dose: 100 mg Emollient Ointment (Lansinoh Hpa) 0 gm TOP ASDIRECTED PRN PRN Reason: Sore Nipples Last Admin: 06/20/19 23:30 Dose: 1 tube Enoxaparin Sodium (Lovenox) 80 mg SUBCUT Q12H LEANNE Last Admin: 06/22/19 06:44 Dose: 80 mg Hydrocortisone (Proctozone-Hc 2.5% Crm) 1 gm TOP 6XDAY PRN PRN Reason: Itching Lactated Ringer's (Ringers, Lactated) 1,000 mls @ 150 mls/hr IV ASDIRECTED LEANNE Last Admin: 06/20/19 15:47 Dose: 150 mls/hr Oxytocin/Sodium Chloride (Oxytocin 30 Unit/500 Ml-Ns) 30 unit in 500 mls @ 500 mls/hr IV TITRATE LEANNE Oxytocin/Sodium Chloride (Oxytocin 30 Unit/500 Ml-Ns) 30 unit in 500 mls @ 2 mls/hr IV TITRATE LEANNE; Protocol Last Titration: 06/20/19 16:45 Dose: 500 munits/min, 500 mls/hr Tranexamic Acid 1,000 mg/ (Sodium Chloride) 110 mls @ 660 mls/hr IV ONETIME PRN PRN Reason: Bleeding Ibuprofen (Motrin) 400 mg PO Q4H PRN PRN Reason: Pain Ibuprofen (Motrin) 800 mg PO Q6H PRN PRN Reason: Pain Methylergonovine Maleate (Methergine) 0.2 mg IM ASDIRECTED PRN PRN Reason: Post Hemorrhage Nalbuphine HCl (Nubain) 10 mg IVPUSH Q1H PRN PRN Reason: Pain (severe 7-10) Ondansetron HCl (Zofran) 4 mg IVPUSH Q4H PRN PRN Reason: Nausea/Vomiting Oxycodone HCl (Oxycodone) 5 mg PO Q2H PRN PRN Reason: Pain Sodium Chloride (Saline Flush) 10 ml FLUSH ASDIRECTED PRN PRN Reason: Keep Vein Open Sodium Chloride (Saline Flush) 2.5 ml FLUSH ASDIRECTED PRN PRN Reason: Keep Vein Open Sodium Chloride (Normal Saline) 10 ml IV ASDIRECTED PRN PRN Reason: IV Use Sterile Water (Sterile Water For Irrigation) 1,000 ml IRR ASDIRECTED PRN PRN Reason: delivery Alejandro Rogers ([place]) 1 pad TOP ASDIRECTED PRN PRN Reason: comfort care Last Admin: 06/20/19 23:31 Dose: 1 canister Discontinued Medications Bupivacaine HCl (Sensorcaine-Mpf 0.25%) Confirm Administered Dose 10 ml .ROUTE .STK-MED ONE Stop: 06/20/19 13:10 Last Admin: 06/20/19 21:33 Dose: Not Given Bupivacaine HCl (Sensorcaine-Mpf 0.25%) Confirm Administered Dose 10 ml .ROUTE .STK-MED ONE Stop: 06/20/19 16:06 Last Admin: 06/20/19 21:33 Dose: Not Given Butorphanol Tartrate (Stadol) 1 mg IVPUSH Q1H PRN PRN Reason: Pain Fentanyl (Sublimaze) Confirm Administered Dose 100 mcg .ROUTE .STK-MED ONE Stop: 06/20/19 13:10 Last Admin: 06/20/19 21:33 Dose: Not Given Ampicillin Sodium 2 gm/ Sodium (Chloride) 100 mls @ 200 mls/hr IV ONETIME ONE Stop: 06/20/19 05:44 Last Admin: 06/20/19 05:50 Dose: 200 mls/hr Ampicillin Sodium 1 gm/ Sodium (Chloride) 50 mls @ 100 mls/hr IV Q4H LEANNE Last Admin: 06/20/19 14:12 Dose: 100 mls/hr Fentanyl/Bupivacaine HCl (Hxsorodd-Ehnwz-Ry 2 Mcg/Ml-0.125%) Confirm Administered Dose 100 mls @ as directed .ROUTE .STK-MED ONE Stop: 06/20/19 13:10 Last Admin: 06/20/19 21:32 Dose: Not Given Labetalol HCl (Normodyne) 10 mg IVPUSH ONETIME ONE; Protocol Stop: 06/20/19 08:56 Last Admin: 06/20/19 09:23 Dose: 10 mg Lidocaine (Xylocaine-Mpf 2%) Confirm Administered Dose 5 ml .ROUTE .STK-MED ONE Stop: 06/20/19 16:06 Last Admin: 06/20/19 21:33 Dose: Not Given Lidocaine HCl (Xylocaine 1%) 50 ml INJECT ONETIME PRN PRN Reason: Laceration repair Lidocaine HCl (Xylocaine 1%) Confirm Administered Dose 50 ml .ROUTE .STK-MED ONE Stop: 06/20/19 16:42 Last Admin: 06/20/19 21:33 Dose: Not Given Misoprostol (Cytotec) 200 mcg PO ONETIME PRN PRN Reason: Post Hemorrhage Misoprostol (Cytotec) 25 mcg VAG ONETIME PRN PRN Reason: Cervical Ripening Misoprostol (Cytotec) 25 mcg VAG Q4H PRN PRN Reason: Cervical Ripening Terbutaline Sulfate (Brethine) 0.25 mg SUBCUT ASDIRECTED PRN PRN Reason: Tacysystole - Problem List & Annotations (1) Vaginal delivery SNOMED Code(s): 259710090 Code(s): O80 - ENCOUNTER FOR FULL-TERM UNCOMPLICATED DELIVERY Status: Resolved Current Visit: Yes - My Orders Last 24 Hours: My Active Orders 06/21/19 18:00 Enoxaparin [Lovenox] 80 mg SUBCUT Q12H - Plan Plan:: Patient seen and examined--agree with above. Patient will monitor blood pressures and call if >140/90. Continue lovenox bid.
== END 2019-06-22 12:00 | disposition home or self-care (01) | DRG 560 ==
LOC: MW.OBCHECK 05:11 → MW.OB 05:12 → MW.OBCHECK 05:15 → MW.OB 05:15 → OBSVTOIN 16:40 → MW.OB 06-21 01:55
PROVIDERS: ADMIT Obstetrics & Gynecology; ATTEND Obstetrics & Gynecology
PROC: 10E0XZZ Delivery of Products of Conception, External Approach (ICD-10-PCS; principal; 2019-06-20)
PROC: 10907ZC Drainage of Amniotic Fluid, Therapeutic from Products of Conception, Via Natural or Artificial Opening (ICD-10-PCS; 2019-06-20)
PROC: 3E033VJ Introduction of Other Hormone into Peripheral Vein, Percutaneous Approach (ICD-10-PCS; 2019-06-20)
PROC: 0HQ9XZZ Repair Perineum Skin, External Approach (ICD-10-PCS; 2019-06-20)
DX: O13.4 Gestational [pregnancy-induced] hypertension without significant proteinuria, complicating childbirth (principal); O22.33 Deep phlebothrombosis in pregnancy, third trimester; I82.409 Acute embolism and thrombosis of unspecified deep veins of unspecified lower extremity; O76 Abnormality in fetal heart rate and rhythm complicating labor and delivery; O70.0 First degree perineal laceration during delivery; Z3A.37 37 weeks gestation of pregnancy; Z37.0 Single live birth; O09.529 Supervision of elderly multigravida, unspecified trimester; Z88.2 Allergy status to sulfonamides; Z79.01 Long term (current) use of anticoagulants
CPT/HCPCS: 36415; 51702; 59025; 59409; 80053; 81003; 82570; 82803; 84156; 85027; 85610; 85730; 86850; 86900; 86901; 88307; A9270-GY; J0290; J1650; J2001; J2590; J3010; J3490; J7030; J7050; J7120

== ENCOUNTER 2021-08-08 06:33 | Day surgery (SDC) | payer BC ==
[~2021-08-08 06:33] MED LIST: Lactated Ringers 1,000 ML IV SCH; Sodium Chloride 0.9% 10 ML Syringe FLUSH PRN; Sodium Chloride 0.9% 2.5 ML Syringe FLUSH PRN; Sodium Chloride 0.9% 20 ML SDV IV PRN
[2021-08-08] MEDS ORDERED: fentaNYL 100 MCG/2 ML SDV ONE (07:29)
[2021-08-08] MEDS ORDERED: Propofol 200 MG/20 ML SDV ONE (07:29)
--- NOTE | 2021-08-08 07:33 | PCM.PREANE ---
Preanesthetic Assessment - Procedure Proposed Procedure: Colonoscopy - Anesthesia/Transfusion/Family Hx Anesthesia History: Prior Anesthesia Without Reaction Family History of Anesthesia Reaction: No Transfusion History: No Prior Transfusion(s) - Review of Systems General: No Symptoms Pulmonary: No Symptoms Cardiovascular: No Symptoms Gastrointestinal: No Symptoms Neurological: No Symptoms Other: Reports: Thyroid Problems (Hypo) - Physical Assessment NPO Status Date: 08/07/21 NPO Status Time: 21:30 Vital Signs: Last Vital Signs Temp 97.2 F 08/08/21 07:12 Pulse 103 H 08/08/21 07:12 Resp 16 08/08/21 07:12 BP 128/84 08/08/21 07:23 Pulse Ox 98 08/08/21 07:12 Height: 5 ft 7 in Weight: 111.584 kg (Obesity) Mental Status: Alert & Oriented x3 Airway Class: Mallampati = 1 Dentition: Reports: Normal Dentition Thyro-Mental Finger Breadths: 3 Mouth Opening Finger Breadths: 3 ROM/Head Extension: Full Lungs: Clear to Auscultation, Normal Respiratory Effort Cardiovascular: Regular Rate, Regular Rhythm - Lab Values: Laboratory Last Values Urine HCG, Qual NEGATIVE (NEGATIVE) 08/08/21 06:00 SARS-CoV-2 RNA (BROOKS) NEGATIVE (NEGATIVE) 08/08/21 06:00 - Allergies Allergies/Adverse Reactions: Allergies Allergy/AdvReac Type Severity Reaction Status Date / Time Sulfa (Sulfonamide Allergy Rash Verified 08/07/21 12:24 Antibiotics) - Acknowledgements Anesthesia Type Planned: General Anesthesia Pt an Appropriate Candidate for the Planned Anesthesia: Yes Alternatives and Risks of Anesthesia Discussed w Pt/Guardian: Yes Pt/Guardian Understands and Agrees with Anesthesia Plan: Yes PreAnesthesia Questionnaire HEENT History: Reports: None Cardiovascular History: Reports: None, Blood Clots/VTE/DVT, Other (See Below) Other Cardiovascular History: hx induced HTN, DVT behind right knee in 2019 Respiratory History: Reports: None Gastrointestinal History: Reports: Hemorrhoids Genitourinary History: Reports: None 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: Dysfunctional Uterine Bleeding, Musculoskeletal History: Reports: None Neurological History: Reports: None Psychiatric History: Reports: Anxiety, Depression Endocrine/Metabolic History: Reports: Diabetes, Gestational, Hypothyroidism, Obesity/BMI 30+ Hematologic History: Reports: Other (See Below) Other Hematologic History: Von Willebrand's (type 1)-heterozygous Immunologic History: Reports: None Oncologic (Cancer) History: Reports: None Dermatologic History: Reports: None - Past Surgical History Head Surgeries/Procedures: Reports: None HEENT Surgical History: Reports: LASIK, Oral Surgery Cardiovascular Surgical History: Reports: None Respiratory Surgical History: Reports: None GI Surgical History: Reports: Colonoscopy, Other (See Below) Female Surgical History: Reports: None Endocrine Surgical History: Reports: None Neurological Surgical History: Reports: None Musculoskeletal Surgical History: Reports: Other (See Below) Other Musculoskeletal Surgeries/Procedures:: ACL repair-left 2000 Oncologic Surgical History: Reports: None Dermatological Surgical History: Reports: None - SUBSTANCE USE Tobacco Use Status *Q: Never Tobacco User - HOME MEDS Home Medications: Home Meds Cholecalciferol (Vitamin D3) [Vitamin D3] 1,000 units PO DAILY 08/02/21 [History] Escitalopram Oxalate [Lexapro] 40 mg PO DAILY 08/02/21 [History] Levothyroxine Sodium [Levo-T] 50 mcg PO DAILY 08/02/21 [History] Multivitamin 1 tab PO DAILY 08/02/21 [History] - CURRENT (IN HOUSE) MEDS Current Meds: Current Medications Lactated Ringer's (Ringers, Lactated) 1,000 mls @ 125 mls/hr IV ASDIRECTED [facility]AN[facility] Last Admin: 08/08/21 07:11 Dose: 125 mls/hr Documented by: Sodium Chloride (Sodium Chloride 0.9% 10 Ml Syringe) 10 ml FLUSH ASDIRECTED PRN PRN Reason: Keep Vein Open Sodium Chloride (Sodium Chloride 0.9% 2.5 Ml Syringe) 2.5 ml FLUSH ASDIRECTED PRN PRN Reason: Keep Vein Open Sodium Chloride (Sodium Chloride 0.9% 10 Ml Syringe) 10 ml FLUSH ASDIRECTED PRN PRN Reason: Keep Vein Open Sodium Chloride (Sodium Chloride 0.9% 2.5 Ml Syringe) 2.5 ml FLUSH ASDIRECTED PRN PRN Reason: Keep Vein Open Sodium Chloride (Sodium Chloride 0.9% 20 Ml Sdv) 10 ml IV ASDIRECTED PRN PRN Reason: IV Use
--- NOTE | 2021-08-08 08:47 | PCM.OPNOTE ---
- General Post-Op/Procedure Note Date of Surgery/Procedure: 08/08/21 Operative Procedure(s): Screening colonoscopy Findings: Diverticulosis Pre Op Diagnosis: Screening colonoscopy, family history colon polyps and cancer Post-Op Diagnosis: Diverticulosis Anesthesia Technique: [facility] [place] Primary Surgeon: Tiffanie Romero Condition: Good
--- NOTE | 2021-08-08 08:50 | PCM.POSTAN ---
POST ANESTHESIA ASSESSMENT - MENTAL STATUS Mental Status: Alert, Oriented - VITAL SIGNS Vital Signs: Last Vital Signs Temp 97.2 F 08/08/21 07:12 Pulse 103 H 08/08/21 07:12 Resp 16 08/08/21 07:12 BP 128/84 08/08/21 07:23 Pulse Ox 98 08/08/21 07:12 - RESPIRATORY Respiratory Status: Respiratory Rate WNL, Airway Patent, O2 Saturation Stable - CARDIOVASCULAR CV Status: Pulse Rate WNL, Blood Pressure Stable - GASTROINTESTINAL GI Status: No Symptoms - PAIN Pain Score: 0 - POST OP HYDRATION Hydration Status: Adequate & Stable
--- NOTE | 2021-08-08 09:00 | PCM48HPAN ---
Post Anesthesia Note - EVALUATION WITHIN 48HRS OF ANESTHETIC Vital Signs in Normal Range: Yes Patient Participated in Evaluation: Yes Respiratory Function Stable: Yes Airway Patent: Yes Cardiovascular Function Stable: Yes Hydration Status Stable: Yes Pain Control Satisfactory: Yes Nausea and Vomiting Control Satisfactory: Yes Mental Status Recovered: Yes Vital Signs: Last Vital Signs Temp 99.3 F 08/08/21 08:42 Pulse 81 08/08/21 08:52 Resp 15 08/08/21 08:52 BP 125/79 08/08/21 08:52 Pulse Ox 94 L 08/08/21 08:52 - COMMENTS/OBSERVATIONS Free Text/Narrative:: Pt doing well post-op. VSS. No apparent anesthetic complications. Dr. Yoni Escobar
--- NOTE | 2021-08-08 15:43 | OR ---
SURGEON: BRANDAN FLOREZ MD DATE OF PROCEDURE: 08/08/2021 PREOPERATIVE DIAGNOSES: Screening colonoscopy, family history of colon polyps and colon cancer. POSTOPERATIVE DIAGNOSIS: Diverticulosis. PROCEDURE PERFORMED: Screening colonoscopy. ANESTHESIA: MAC. INSTRUMENT USED: Olympus colonoscope. EXTENT OF EXAM: To the cecum. PREPARATION: Good. LIMITATIONS: None. INDICATIONS FOR EXAMINATION: The patient is a 46-year-old female who presented to the clinic for a screening colonoscopy. She has a grandparent who had colon cancer and her mother has had multiple polyps removed through various screening colonoscopies. I explained the procedure, expected perioperative course, and the risks. She verbalized understanding and wishes to proceed. PROCEDURE IN DETAIL: The patient was brought to the endoscopy suite and placed in the left lateral decubitus position. A time-out was completed verifying the patient's name, age, date of , allergies, and procedure to be performed. Monitored anesthesia care was induced, and continuous oxygen was provided via face mask throughout the procedure. After adequate sedation was achieved, a digital rectal exam was performed. This exam was within normal limits. A well-lubricated colonoscope was inserted into the rectum and advanced under direct visualization to the level of the cecum. The cecum was identified by both visual and anatomic landmarks. A photograph was taken of cecal cap; however, I was unable to retroflex the scope within the cecum due to looping of the scope more proximally. The scope was then fully withdrawn while examining the color, texture, anatomy, and integrity of mucosa from the cecum to the anal canal. The patient was noted to have diverticulosis within the sigmoid colon. The scope was brought into the rectum and retroflexed to allow visualization of the anal canal opening. This appeared normal, and a photograph was taken. The scope was then straightened out and fully withdrawn. The cecum to anus time was 11 minutes. The patient tolerated the procedure well, was transferred to the PACU in stable condition. ENDOSCOPIC DIAGNOSIS: Diverticulosis. RECOMMENDATIONS: Follow up in clinic in 2 weeks to discuss diverticulosis. SNODRA WILCOX /[id number]
== END 2021-08-08 09:18 | disposition home or self-care (01) ==
LOC: MW.SDS 06:33
PROVIDERS: ATTEND Surgery
DX: Z12.11 Encounter for screening for malignant neoplasm of colon (principal); K57.30 Diverticulosis of large intestine without perforation or abscess without bleeding; E03.9 Hypothyroidism, unspecified; E66.9 Obesity, unspecified; R03.0 Elevated blood-pressure reading, without diagnosis of hypertension; K42.9 Umbilical hernia without obstruction or gangrene; M62.08 Separation of muscle (nontraumatic), other site; Z01.812 Encounter for preprocedural laboratory examination; Z20.822 Contact with and (suspected) exposure to COVID-19; Z83.71 Family history of colonic polyps; Z80.0 Family history of malignant neoplasm of digestive organs; Z88.2 Allergy status to sulfonamides; Z79.899 Other long term (current) drug therapy; Z98.890 Other specified postprocedural states; Z68.38 Body mass index [BMI] 38.0-38.9, adult
CPT/HCPCS: 45378; 81025; 87635; J2704; J3010; J7120; 00812; U0002

== ENCOUNTER 2021-08-13 08:35 | Day surgery (SDC) | payer BC ==
[2021-08-12 10:33] LABS: BLOOD UREA NITROGEN,BUN 12 mg/dL (7.0-18.0); CARBON DIOXIDE,CO2 28.1 mmol/L (21.0-32.0); CHLORIDE,CL 101 mmol/L (98-107); GLUCOSE RANDOM 95 mg/dL (74-106); POTASSIUM,K 4.2 mmol/L (3.5-5.1); SODIUM,NA 138 mmol/L (136-145)
[~2021-08-13 08:35] MED LIST changes: +Albuterol 0.083% 2.5 MG/3 ML Neb Soln NEB PRN; +Bupivacaine 0.25% 10 ML SDV ONE; +Dexamethasone 4 MG/ML 5 ML MDV ONE; +Enoxaparin 40 MG/0.4 ML Syringe SUBCUT ONE; +Fluorescein 5 ML Vial ONE; +HYDROmorphone 1 MG/ML Syringe IVPUSH PRN; -Lactated Ringers 1,000 ML IV SCH; +Methylene Blue 50 MG/10 ML Ampule ONE; +Metoclopramide 10 MG/2 ML SDV IVPUSH PRN; +Midazolam 1 MG/ML 2 ML SDV ONE; +Morphine 2 MG/ML SYRINGE IVPUSH PRN; +Naloxone 0.4 MG/ML SDV IVPUSH PRN; +Octyl 2-Cyanoacrylate 1 Tube ONE; +Ondansetron 4 MG/2 ML SDV IVPUSH PRN; +Propofol 200 MG/20 ML SDV ONE; +Scopolamine 1.5 MG Transdermal Patch ONE; +ceFAZolin 2 GM in Premix Bag 1 BAG IV ONE; +fentaNYL 100 MCG/2 ML SDV IVPUSH PRN; +fentaNYL 250 MCG/5 ML SDV ONE
[2021-08-13] MEDS ORDERED: Enoxaparin 40 MG/0.4 ML Syringe ONE (09:16)
--- NOTE | 2021-08-13 09:27 | PCM.PREANE ---
Preanesthetic Assessment - Anesthesia/Transfusion/Family Hx Anesthesia History: Prior Anesthesia Without Reaction Type of Anesthesia Reaction: Other (see below) (some nausea) Family History of Anesthesia Reaction: Yes (mother) Transfusion History: No Prior Transfusion(s) - Review of Systems General: No Symptoms Pulmonary: No Symptoms Cardiovascular: No Symptoms Gastrointestinal: No Symptoms Neurological: No Symptoms Other: Reports: None - Physical Assessment Vital Signs: Last Vital Signs Temp 36.5 C 08/13/21 08:53 Pulse 69 08/13/21 08:53 Resp 14 08/13/21 08:53 BP 146/82 H 08/13/21 08:53 Pulse Ox 99 08/13/21 08:53 Height: 1.7 m Weight: 112.037 kg ASA Class: 3 Mental Status: Alert & Oriented x3 Airway Class: Mallampati = 1 Dentition: Reports: Normal Dentition ROM/Head Extension: Full Lungs: Clear to Auscultation Cardiovascular: Regular Rate - Lab Values: Laboratory Last Values WBC 8.49 K/uL (4.0-11.0) 08/12/21 09:46 RBC 4.37 M/uL (4.30-5.90) 08/12/21 09:46 Hgb 13.0 g/dL (12.0-16.0) 08/12/21 09:46 Hct 38.1 % (36.0-46.0) 08/12/21 09:46 MCV 87.2 fL (80.0-98.0) 08/12/21 09:46 MCH 29.7 pg (27.0-32.0) 08/12/21 09:46 MCHC 34.1 g/dL (31.0-37.0) 08/12/21 09:46 RDW Std Deviation 41.8 fl (28.0-62.0) 08/12/21 09:46 RDW Coeff of Toan 13 % (11.0-15.0) 08/12/21 09:46 Plt Count 276 K/uL (150-400) 08/12/21 09:46 MPV 9.90 fL (7.40-12.00) 08/12/21 09:46 Nucleated RBC % 0.0 /100WBC 08/12/21 09:46 Nucleated RBCs # 0 K/uL 08/12/21 09:46 Sodium 138 mmol/L (136-145) 08/12/21 09:46 Potassium 4.2 mmol/L (3.5-5.1) 08/12/21 09:46 Chloride 101 mmol/L (98-107) 08/12/21 09:46 Carbon Dioxide 28.1 mmol/L (21.0-32.0) 08/12/21 09:46 BUN 12 mg/dL (7.0-18.0) 08/12/21 09:46 Creatinine 0.9 mg/dL (0.6-1.0) 08/12/21 09:46 Est Cr Clr Drug Dosing 76.76 mL/min 08/12/21 09:46 Estimated GFR (MDRD) > 60.0 ml/min 08/12/21 09:46 Glucose 95 mg/dL (74-106) 08/12/21 09:46 Calcium 9.1 mg/dL (8.5-10.1) 08/12/21 09:46 HCG, Qual NEGATIVE (NEG) 08/12/21 09:46 Blood Type A POSITIVE 08/12/21 09:46 Antibody Screen NEGATIVE 08/12/21 09:46 - Allergies Allergies/Adverse Reactions: Allergies Allergy/AdvReac Type Severity Reaction Status Date / Time Sulfa (Sulfonamide Allergy Rash Verified 08/07/21 12:24 Antibiotics) - Acknowledgements Anesthesia Type Planned: General Anesthesia (ett) Pt an Appropriate Candidate for the Planned Anesthesia: Yes Alternatives and Risks of Anesthesia Discussed w Pt/Guardian: Yes Pt/Guardian Understands and Agrees with Anesthesia Plan: Yes PreAnesthesia Questionnaire HEENT History: Reports: None Cardiovascular History: Reports: None, Blood Clots/VTE/DVT, Other (See Below) Other Cardiovascular History: hx induced HTN, DVT behind right knee in 2019 Respiratory History: Reports: None Gastrointestinal History: Reports: Hemorrhoids Genitourinary History: Reports: None 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 Resolved now Endocrine/Metabolic History: Reports: Diabetes, Gestational, Hypothyroidism, Obesity/BMI 30+ Hematologic History: Reports: Other (See Below) Other Hematologic History: Von Willebrand's (type 1)-heterozygous Immunologic History: Reports: None Oncologic (Cancer) History: Reports: None Dermatologic History: Reports: None - Infectious Disease History Infectious Disease History: Reports: Chicken Pox - Past Surgical History Head Surgeries/Procedures: Reports: None HEENT Surgical History: Reports: LASIK, Oral Surgery Cardiovascular Surgical History: Reports: None Respiratory Surgical History: Reports: None GI Surgical History: Reports: Colonoscopy, Other (See Below) Other GI Surgeries/Procedures: colonoscopy on 08/08/21 Female Surgical History: Reports: None Endocrine Surgical History: Reports: None Neurological Surgical History: Reports: None Musculoskeletal Surgical History: Reports: Other (See Below) Other Musculoskeletal Surgeries/Procedures:: ACL repair-left 2000 Oncologic Surgical History: Reports: None Dermatological Surgical History: Reports: None - SUBSTANCE USE Tobacco Use Status *Q: Never Tobacco User - HOME MEDS Home Medications: Home Meds Cholecalciferol (Vitamin D3) [Vitamin D3] 1,000 units PO DAILY 08/02/21 [History] Escitalopram Oxalate [Lexapro] 40 mg PO DAILY 08/02/21 [History] Levothyroxine Sodium [Levo-T] 50 mcg PO DAILY 08/02/21 [History] Multivitamin 1 tab PO DAILY 08/02/21 [History] - CURRENT (IN HOUSE) MEDS Current Meds: Current Medications Albuterol (Albuterol 0.083% 2.5 Mg/3 Ml Neb Soln) 2.5 mg NEB ONETIME PRN PRN Reason: Wheezing Droperidol (Droperidol 5 Mg/2 Ml Sdv) 0.625 mg IVPUSH ONETIME PRN PRN Reason: Nausea/Vomiting Fentanyl (Fentanyl 100 Mcg/2 Ml Sdv) 50 mcg IVPUSH Q5M PRN PRN Reason: Pain (mild 1-3) Hydromorphone HCl (Hydromorphone 1 Mg/Ml Syringe) 1 mg IVPUSH Q10M PRN PRN Reason: Pain (moderate 4-6) Lactated Ringer's (Ringers, Lactated) 1,000 mls @ 125 mls/hr IV ASDIRECTED [facility] Last Admin: 08/13/21 09:12 Dose: 125 mls/hr Documented by: Metoclopramide HCl (Metoclopramide 10 Mg/2 Ml Sdv) 10 mg IVPUSH ONETIME PRN PRN Reason: Nausea/Vomiting Morphine Sulfate (Morphine 2 Mg/Ml Syringe) 2 mg IVPUSH Q10M PRN PRN Reason: Pain (severe 7-10) Naloxone HCl (Naloxone 0.4 Mg/Ml Sdv) 0.1 mg IVPUSH ASDIRECTED PRN PRN Reason: Respiratory Depression Ondansetron HCl (Ondansetron 4 Mg/2 Ml Sdv) 4 mg IVPUSH ONETIME PRN PRN Reason: Nausea/Vomiting Sodium Chloride (Sodium Chloride 0.9% 10 Ml Syringe) 10 ml FLUSH ASDIRECTED PRN PRN Reason: Keep Vein Open Sodium Chloride (Sodium Chloride 0.9% 2.5 Ml Syringe) 2.5 ml FLUSH ASDIRECTED PRN PRN Reason: Keep Vein Open Sodium Chloride (Sodium Chloride 0.9% 20 Ml Sdv) 10 ml IV ASDIRECTED PRN PRN Reason: IV Use Discontinued Medications Bupivacaine HCl (Bupivacaine 0.25% 10 Ml Sdv) Confirm Administered Dose 20 ml .ROUTE .STK-MED ONE Stop: 08/13/21 07:26 Dexamethasone (Dexamethasone 4 Mg/Ml 5 Ml Mdv) Confirm Administered Dose 20 mg .ROUTE .STK-MED ONE Stop: 08/13/21 07:29 Enoxaparin Sodium (Enoxaparin 40 Mg/0.4 Ml Syringe) 40 mg SUBCUT ONETIME ONE Stop: 08/13/21 05:01 Last Admin: 08/13/21 09:21 Dose: 40 mg Documented by: Enoxaparin Sodium (Enoxaparin 40 Mg/0.4 Ml Syringe) Confirm Administered Dose 40 mg .ROUTE .STK-MED ONE Stop: 08/13/21 09:17 Fentanyl (Fentanyl 250 Mcg/5 Ml Sdv) Confirm Administered Dose 250 mcg .ROUTE .STK-MED ONE Stop: 08/13/21 07:22 Fluorescein Sodium (Fluorescein 5 Ml Vial) Confirm Administered Dose 5 ml .ROUTE .STK-MED ONE Stop: 08/13/21 07:26 Cefazolin Sodium/Dextrose 2 gm (/ Premix) 50 mls @ 100 mls/hr IV ONETIME ONE Stop: 08/13/21 05:29 Cefazolin Sodium/Dextrose (Ancef) Confirm Administered Dose 50 mls @ as directed .ROUTE .STK-MED ONE Stop: 08/13/21 09:10 Lidocaine HCl (Lidocaine 1% 5 Ml Sdv) Confirm Administered Dose 5 ml .ROUTE .STK-MED ONE Stop: 08/13/21 07:28 Methylene Blue (Methylene Blue 50 Mg/10 Ml Ampule) Confirm Administered Dose 50 mg .ROUTE .STK-MED ONE Stop: 08/13/21 07:26 Midazolam HCl (Midazolam 1 Mg/Ml 2 Ml Sdv) Confirm Administered Dose 2 mg .ROUTE .STK-MED ONE Stop: 08/13/21 07:22 Octyl Cyanoacrylate (Octyl 2-Cyanoacrylate 1 Tube) Confirm Administered Dose 1 applic .ROUTE .STK-MED ONE Stop: 08/13/21 07:26 Propofol (Propofol 200 Mg/20 Ml Sdv) Confirm Administered Dose 200 mg .ROUTE .STK-MED ONE Stop: 08/13/21 07:21 Scopolamine (Scopolamine 1.5 Mg Transdermal Patch) Confirm Administered Dose 1.5 mg .ROUTE .STK-MED ONE Stop: 08/13/21 07:28 Last Admin: 08/13/21 09:24 Dose: 1.5 mg Documented by:
[2021-08-13] MEDS ORDERED: Lactated Ringers 1,000 ML IV SCH ×2 (09:30→11:15)
[2021-08-13] MEDS ORDERED: Sugammadex Sodium 200 MG/2 ML VIAL ONE (10:13)
[2021-08-13] MEDS ORDERED: HYDROmorphone 2 MG/ML Syringe ONE (10:50)
[2021-08-13] MEDS ORDERED: Acetaminophen/oxyCODONE 325-5 MG Tab PO PRN ×2 (11:03)
[2021-08-13] MEDS ORDERED: Ondansetron 4 MG/2 ML SDV IVPUSH PRN (11:03)
[2021-08-13] MEDS ORDERED: Promethazine 25 MG/ML SDV IM PRN (11:03)
[2021-08-13] MEDS ORDERED: Ketorolac 30 MG/ML SDV IVPUSH ONE (11:03)
[2021-08-13] MEDS ORDERED: Morphine 4 MG/ML VIAL IVPUSH PRN (11:03)
[2021-08-13] MEDS ORDERED: Octyl 2-Cyanoacrylate 1 Tube ONE (11:17)
[2021-08-13] MEDS ORDERED: Bupivacaine 0.25% 10 ML SDV ONE (11:17)
--- NOTE | 2021-08-13 11:18 | PCM.OPNOTE ---
- General Post-Op/Procedure Note Date of Surgery/Procedure: 08/13/21 Operative Procedure(s): LAVH/bilateral salpingectomy/cystoscopy Findings: boggy enlarged uterus. Normal appearing ovaries. Bilateral patent ureters Pre Op Diagnosis: Menorrhagia. Pelvic pain Post-Op Diagnosis: Same Anesthesia Technique: General ET Tube Primary Surgeon: Vero Cotton Pathology: uterus Fluid Replacement, Intraop: 1,400 EBL in mLs: 150 Complications: none known Condition: Stable Free Text/Narrative:: Dictation [id number]
--- NOTE | 2021-08-13 11:53 | PCM.POSTAN ---
POST ANESTHESIA ASSESSMENT - MENTAL STATUS Mental Status: Alert, Oriented - VITAL SIGNS Vital Signs: Last Vital Signs Temp 97.7 F 08/13/21 11:05 Pulse 79 08/13/21 11:51 Resp 16 08/13/21 11:51 BP 155/97 H 08/13/21 11:51 Pulse Ox 97 08/13/21 11:51 - RESPIRATORY Respiratory Status: Respiratory Rate WNL, Airway Patent, O2 Saturation Stable - CARDIOVASCULAR CV Status: Pulse Rate WNL, Blood Pressure Stable - GASTROINTESTINAL GI Status: No Symptoms - POST OP HYDRATION Hydration Status: Adequate & Stable
--- NOTE | 2021-08-13 11:54 | PCM48HPAN ---
Post Anesthesia Note - EVALUATION WITHIN 48HRS OF ANESTHETIC Vital Signs in Normal Range: Yes Patient Participated in Evaluation: Yes Respiratory Function Stable: Yes Airway Patent: Yes Cardiovascular Function Stable: Yes Hydration Status Stable: Yes Pain Control Satisfactory: Yes Nausea and Vomiting Control Satisfactory: Yes Mental Status Recovered: Yes Vital Signs: Last Vital Signs Temp 97.7 F 08/13/21 11:05 Pulse 79 08/13/21 11:51 Resp 16 08/13/21 11:51 BP 155/97 H 08/13/21 11:51 Pulse Ox 97 08/13/21 11:51
--- NOTE | 2021-08-13 14:49 | OR ---
SURGEON: Vero Cotton M.D. DATE OF PROCEDURE: 08/13/2021 PREOPERATIVE DIAGNOSES: 1. Menorrhagia. 2. Pelvic pain. POSTOPERATIVE DIAGNOSES: 1. Menorrhagia. 2. Pelvic pain. PROCEDURES: 1. Laparoscopic-assisted vaginal hysterectomy. 2. Bilateral salpingectomy. 3. Cystoscopy. PRIMARY SURGEON: Vero Cotton M.D. BLUNGER: Yesi Layne MD ANESTHESIA: General endotracheal anesthesia. ESTIMATED BLOOD LOSS: 150 mL. FLUIDS: 1400 mL of crystalloid. COMPLICATIONS: None known. FINDINGS: 1. Enlarged boggy uterus. 2. Normal-appearing ovaries. 3. Bilateral patent ureters. DISPOSITION: The patient to PACU, stable. SPECIMENS: To Pathology. PROCEDURE DETAILS: Krystle is a 46-year-old female, G4, P4, who is having ongoing difficulties with abnormal uterine bleeding since the delivery of her last child two years ago. Endometrial biopsy was benign. Sonohysterogram is normal. At this time, she would like to proceed with definitive surgical intervention as she is constantly having pelvic cramping and discomfort as well. Risks of procedure were discussed. Proper consent was obtained. Given patient's personal history of DVT, prophylaxis with Lovenox 40 mg subcu. The patient was taken to the operating room, underwent general endotracheal anesthesia, placed in modified dorsal lithotomy position, was prepped and draped in usual sterile fashion. SCDs to the lower extremities, Vang to gravity, backfilled with methylene blue. Received Ancef prophylactically. Time-out was performed. Speculum was introduced in the vagina. Anterior lip of cervix was grasped with single-tooth tenaculum. HUMI uterine manipulator was now gently introduced into the uterine cavity. The balloon was insufflated. The speculum and tenaculum were now removed. Attention was turned abdominally. Gloves had been changed. Patient had a bit of a defect umbilically, therefore, prepped the region supraumbilically with 0.25% Marcaine. Created a 5 mm skin incision, anterior abdominal wall tented upward, and introduced a Veress needle. Saline hanging drop test was performed. Pneumoperitoneum was achieved. The Veress needle removed. Trocar was introduced with laparoscope. Peritoneal contents were identified. There was no bowel or mesentery involved with the umbilicus at this time. Pelvis was visualized. Patient was placed in Trendelenburg positioning. Uterus was mobile. Right lower quadrant and left lower quadrant 5 mm trocars were introduced after prepping these regions with 0.25% Marcaine and creating 5 mm skin incisions under direct visualization. The ureters were seen peristalsing on the right side followed by the left side. The left fallopian tube was grasped using LigaSure. Salpingectomy was performed up to the level of the cornua and then the pedicle involving the utero-ovarian tissue was able to be secured with LigaSure, cauterized, and transected followed by moving through the medial leaf of the broad ligament, down through the round ligament, to the level of the cardinal ligament. At this point, I was able to skeletonize the cardinal ligament and perform a bladder flap, mobilized bladder away from the lower uterine segment. The cardinal ligament was able to be secured, cauterized, and transected. Similar fashion was performed on the patient's right side. The bladder was hydrodissected away from lower uterine segment. Pneumoperitoneum was now released. Laparoscopic instruments removed. Attention was turned vaginally. The patient's hips and knees were further flexed. Weighted speculum and anterior [place] were placed. Cervix was grasped with Kristel clamp. The cervix was tented downward and circumscribed with Bovie cautery. Anteriorly and posteriorly, the overlying mucosa was dissected away from underlying peritoneum. Posterior peritoneum dissected nicely and was entered with just simple blunt dissection. The entry point was now slightly widened and a weighted speculum was placed. Peritoneal contents were identified. Anteriorly, the cul-de-sac was also entered. The bladder was deviated away from the operative site with Danay. Addison clamp was utilized on either side to secure uterosacral ligament, transected and suture ligated with 2-0 Vicryl. A further pedicle on either side was able to be secured transected and suture ligated. The uterus was now removed along with bilateral fallopian tubes and will be sent to Pathology for further analysis. The pedicles were inspected and found to be hemostatic. The uterosacral ligament on either side was plicated to the vaginal apex. The pedicles once again inspected, found to be hemostatic. The cuff was now closed using 0 Vicryl in continuous running locked fashion. Area of oozing along the inferior aspect of the cuff was re-plicated with a 2-0 [id number] suture. Hemostasis appeared evident. The bladder had been drained. The Vang balloon was desufflated and IV fluorescein and Lasix had been delivered. The Vang catheter was now removed. Cystoscope was introduced using normal saline as distention media. The dome of the bladder was able to be visualized followed by the trigone. The right ureteral orifice followed by the left ureteral orifice was able to be visualized. Fluorescein-dyed urine streaming from them helping to ensure ureteral patency. Cystoscope was now removed, bladder drained, Vang catheter replaced. The vaginal cuff once again inspected, found to be hemostatic. Hip joints were now slightly straightened. Gloves changed. Attention turned abdominally. Pneumoperitoneum was once again achieved. Laparoscope introduced. Peritoneal contents were identified. The pedicles were inspected and found to be hemostatic. The pelvis was copiously irrigated and suction dried. Relief pressure was decreased to 8 mmHg and once again able to visualize pedicles which still appeared hemostatic. Therefore, the pelvis was irrigated and suction dried. Pneumoperitoneum was released. The right and left lower quadrant trocars removed, followed by removal of the infraumbilical trocar after releasing as much of the pneumoperitoneum as possible. Skin edges were reapproximated using 3-0 Monocryl in subcuticular fashion. Sponge, instrument, and needle count was correct x2. The patient had tolerated the procedure well overall. She will go to PACU in stable condition. Specimen to Pathology. JEAN CARLOS / BRENDEN /[id number]
[2021-08-13] MEDS: Ketorolac 30 MG/ML SDV IVPUSH SCH ×2 (17:54→23:59)
[2021-08-13] MEDS: Docusate Sodium 100 MG Cap PO SCH (21:13)
[2021-08-14] MEDS: Ketorolac 30 MG/ML SDV IVPUSH SCH ×2 (06:03→07:27)
[2021-08-14 07:17] LABS: BLOOD UREA NITROGEN,BUN 12 mg/dL (7.0-18.0); CARBON DIOXIDE,CO2 27.1 mmol/L (21.0-32.0); CHLORIDE,CL 103 mmol/L (98-107); GLUCOSE RANDOM 131 mg/dL (74-106); POTASSIUM,K 3.7 mmol/L (3.5-5.1); SODIUM,NA 138 mmol/L (136-145)
[2021-08-14] MEDS: Docusate Sodium 100 MG Cap PO SCH (08:18)
--- NOTE | 2021-08-14 08:54 | PCM.SURGPN ---
- General Info Date of Service: 08/14/21 POD#: 1 Functional Status: Reports: Pain Controlled, Tolerating Diet, Ambulating, Urinating - Review of Systems General: Denies: Fever, Weakness, Fatigue Pulmonary: Denies: Shortness of Breath Cardiovascular: Denies: Chest Pain, Palpitations, Lightheadedness Gastrointestinal: Reports: Abdominal Pain (minimal cramping, pain controlled well overall). Denies: Nausea, Vomiting Genitourinary: Denies: Flank Pain Musculoskeletal: Reports: No Symptoms Skin: Reports: No Symptoms Neurological: Reports: No Symptoms Psychiatric: Reports: No Symptoms - Patient Data Vitals - Most Recent: Last Vital Signs Temp 36.3 C 08/14/21 07:50 Pulse 60 08/14/21 07:50 Resp 16 08/14/21 07:50 BP 119/76 08/14/21 07:50 Pulse Ox 97 08/14/21 04:00 Weight - Most Recent: 112.037 kg I&O - Last 24 Hours: Intake & Output 08/13/21 08/14/21 08/14/21 22:59 06:59 14:59 Output Total 2600 500 250 Balance -2600 -500 -250 Lab Results Last 24 Hrs: Laboratory Results - last 24 hr 08/14/21 08/14/21 Range/Units 05:40 05:40 WBC 10.65 (4.0-11.0) K/uL RBC 3.96 L (4.30-5.90) M/uL Hgb 11.8 L (12.0-16.0) g/dL Hct 35.1 L (36.0-46.0) % MCV 88.6 (80.0-98.0) fL MCH 29.8 (27.0-32.0) pg MCHC 33.6 (31.0-37.0) g/dL RDW Std Deviation 42.6 (28.0-62.0) fl RDW Coeff of [place] 13 (11.0-15.0) % Plt Count 276 (150-400) K/uL MPV 10.50 (7.40-12.00) fL Neut % (Auto) 71.4 (48.0-80.0) % Lymph % (Auto) 19.2 (16.0-40.0) % [place] % (Auto) 9.3 (0.0-15.0) % Eos % (Auto) 0.1 (0.0-7.0) % Baso % (Auto) 0.0 (0.0-1.5) % Neut # (Auto) 7.6 H (1.4-5.7) K/uL Lymph # (Auto) 2.0 (0.6-2.4) K/uL [place] # (Auto) 1.0 H (0.0-0.8) K/uL Eos # (Auto) 0.0 (0.0-0.7) K/uL Baso # (Auto) 0.0 (0.0-0.1) K/uL Nucleated RBC % 0.0 /100WBC Nucleated RBCs # 0 K/uL Sodium 138 (136-145) mmol/L Potassium 3.7 (3.5-5.1) mmol/L Chloride 103 (98-107) mmol/L Carbon Dioxide 27.1 (21.0-32.0) mmol/L BUN 12 (7.0-18.0) mg/dL Creatinine 0.8 (0.6-1.0) mg/dL Est Cr Clr Drug Dosing 86.36 mL/min Estimated GFR (MDRD) > 60.0 ml/min Glucose 131 H (74-106) mg/dL Calcium 8.5 (8.5-10.1) mg/dL Med Orders - Current: Current Medications Docusate Sodium (Docusate Sodium 100 Mg Cap) 100 mg PO BID [facility] Last Admin: 08/14/21 08:18 Dose: 100 mg Documented by: Enoxaparin Sodium (Enoxaparin 40 Mg/0.4 Ml Syringe) 40 mg SUBCUT Q24H [facility] Last Admin: 08/14/21 08:19 Dose: 40 mg Documented by: Lactated Ringer's (Ringers, Lactated) 1,000 mls @ 125 mls/hr IV ASDIRECTED [facility] Last Admin: 08/13/21 15:00 Dose: 125 mls/hr Documented by: Morphine Sulfate (Morphine 4 Mg/Ml Vial) 4 mg IVPUSH Q2H PRN PRN Reason: Pain (severe 7-10) Ondansetron HCl (Ondansetron 4 Mg/2 Ml Sdv) 4 mg IVPUSH Q6H PRN PRN Reason: Nausea/Vomiting Oxycodone/Acetaminophen (Acetaminophen/Oxycodone 325-5 Mg Tab) 1 tab PO Q4H PRN PRN Reason: Pain (moderate 4-6) Oxycodone/Acetaminophen (Acetaminophen/Oxycodone 325-5 Mg Tab) 2 tab PO Q4H PRN PRN Reason: Pain (moderate 4-6) Promethazine HCl (Promethazine 25 Mg/Ml Sdv) 25 mg IM Q6H PRN PRN Reason: Nausea/Vomiting Sodium Chloride (Sodium Chloride 0.9% 10 Ml Syringe) 10 ml FLUSH ASDIRECTED PRN PRN Reason: Keep Vein Open Sodium Chloride (Sodium Chloride 0.9% 2.5 Ml Syringe) 2.5 ml FLUSH ASDIRECTED PRN PRN Reason: Keep Vein Open Sodium Chloride (Sodium Chloride 0.9% 20 Ml Sdv) 10 ml IV ASDIRECTED PRN PRN Reason: IV Use Discontinued Medications Albuterol (Albuterol 0.083% 2.5 Mg/3 Ml Neb Soln) 2.5 mg NEB ONETIME PRN PRN Reason: Wheezing Bupivacaine HCl (Bupivacaine 0.25% 10 Ml Sdv) Confirm Administered Dose 20 ml .ROUTE .STK-MED ONE Stop: 08/13/21 07:26 Bupivacaine HCl (Bupivacaine 0.25% 10 Ml Sdv) Confirm Administered Dose 10 ml .ROUTE .STK-MED ONE Stop: 08/13/21 11:18 Dexamethasone (Dexamethasone 4 Mg/Ml 5 Ml Mdv) Confirm Administered Dose 20 mg .ROUTE .STK-MED ONE Stop: 08/13/21 07:29 Droperidol (Droperidol 5 Mg/2 Ml Sdv) 0.625 mg IVPUSH ONETIME PRN PRN Reason: Nausea/Vomiting Enoxaparin Sodium (Enoxaparin 40 Mg/0.4 Ml Syringe) 40 mg SUBCUT ONETIME ONE Stop: 08/13/21 05:01 Last Admin: 08/13/21 09:21 Dose: 40 mg Documented by: Enoxaparin Sodium (Enoxaparin 40 Mg/0.4 Ml Syringe) Confirm Administered Dose 40 mg .ROUTE .STK-MED ONE Stop: 08/13/21 09:17 Fentanyl (Fentanyl 250 Mcg/5 Ml Sdv) Confirm Administered Dose 250 mcg .ROUTE .STK-MED ONE Stop: 08/13/21 07:22 Fentanyl (Fentanyl 100 Mcg/2 Ml Sdv) 50 mcg IVPUSH Q5M PRN PRN Reason: Pain (mild 1-3) Fluorescein Sodium (Fluorescein 5 Ml Vial) Confirm Administered Dose 5 ml .ROUTE .STK-MED ONE Stop: 08/13/21 07:26 Hydromorphone HCl (Hydromorphone 1 Mg/Ml Syringe) 1 mg IVPUSH Q10M PRN PRN Reason: Pain (moderate 4-6) Hydromorphone HCl (Hydromorphone 2 Mg/Ml Syringe) Confirm Administered Dose 2 mg .ROUTE .STK-MED ONE Stop: 08/13/21 10:51 Cefazolin Sodium/Dextrose 2 gm (/ Premix) 50 mls @ 100 mls/hr IV ONETIME ONE Stop: 08/13/21 05:29 Last Admin: 08/14/21 07:26 Dose: Not Given Documented by: Cefazolin Sodium/Dextrose (Ancef) Confirm Administered Dose 50 mls @ as directed .ROUTE .STK-MED ONE Stop: 08/13/21 09:10 Lactated Ringer's (Ringers, Lactated) 1,000 mls @ 125 mls/hr IV ASDIRECTED [facility] Last Admin: 08/13/21 09:12 Dose: 125 mls/hr Documented by: Ketorolac Tromethamine (Ketorolac 30 Mg/Ml Sdv) 30 mg IVPUSH ONETIME ONE Stop: 08/13/21 11:04 Last Admin: 08/13/21 11:50 Dose: 30 mg Documented by: Ketorolac Tromethamine (Ketorolac 30 Mg/Ml Sdv) 30 mg IVPUSH Q6H [facility] Stop: 08/14/21 05:16 Last Admin: 08/14/21 07:27 Dose: Not Given Documented by: Lidocaine HCl (Lidocaine 1% 5 Ml Sdv) Confirm Administered Dose 5 ml .ROUTE .STK-MED ONE Stop: 08/13/21 07:28 Methylene Blue (Methylene Blue 50 Mg/10 Ml Ampule) Confirm Administered Dose 50 mg .ROUTE .STK-MED ONE Stop: 08/13/21 07:26 Metoclopramide HCl (Metoclopramide 10 Mg/2 Ml Sdv) 10 mg IVPUSH ONETIME PRN PRN Reason: Nausea/Vomiting Midazolam HCl (Midazolam 1 Mg/Ml 2 Ml Sdv) Confirm Administered Dose 2 mg .ROUTE .STK-MED ONE Stop: 08/13/21 07:22 Morphine Sulfate (Morphine 2 Mg/Ml Syringe) 2 mg IVPUSH Q10M PRN PRN Reason: Pain (severe 7-10) Naloxone HCl (Naloxone 0.4 Mg/Ml Sdv) 0.1 mg IVPUSH ASDIRECTED PRN PRN Reason: Respiratory Depression Octyl Cyanoacrylate (Octyl 2-Cyanoacrylate 1 Tube) Confirm Administered Dose 1 applic .ROUTE .STK-MED ONE Stop: 08/13/21 07:26 Octyl Cyanoacrylate (Octyl 2-Cyanoacrylate 1 Tube) Confirm Administered Dose 1 applic .ROUTE .STK-MED ONE Stop: 08/13/21 11:18 Ondansetron HCl (Ondansetron 4 Mg/2 Ml Sdv) 4 mg IVPUSH ONETIME PRN PRN Reason: Nausea/Vomiting Propofol (Propofol 200 Mg/20 Ml Sdv) Confirm Administered Dose 200 mg .ROUTE .STK-MED ONE Stop: 08/13/21 07:21 Scopolamine (Scopolamine 1.5 Mg Transdermal Patch) Confirm Administered Dose 1.5 mg .ROUTE .STK-MED ONE Stop: 08/13/21 07:28 Last Admin: 08/13/21 09:24 Dose: 1.5 mg Documented by: Sugammadex Sodium (Sugammadex Sodium 200 Mg/2 Ml Vial) Confirm Administered Dose 200 mg .ROUTE .STK-MED ONE Stop: 08/13/21 10:14 - Exam Wound/Incisions: Healing Well, Dressing Dry and Intact General: Alert, Oriented Lungs: Normal Respiratory Effort Cardiovascular: Regular Rate, Regular Rhythm GI/Abdominal Exam: Normal Bowel Sounds, Soft Extremities: Pedal Edema (trace). No: Francisca's Sign Skin: Warm, Dry, Intact Neurological: No New Focal Deficit Psy/Mental Status: Alert, Normal Affect, Normal Mood Sepsis Event Note - Evaluation Sepsis Screening Result: No Definite Risk - Focused Exam Vital Signs: Vital Signs Temp Pulse Resp BP Pulse Ox 08/14/21 07:50 36.3 C 60 16 119/76 08/14/21 04:00 36.5 C 66 15 136/74 97 08/14/21 00:00 36.7 C 67 14 126/76 95 - Problem List & Annotations (1) Status post laparoscopic hysterectomy SNOMED Code(s): 514557503, 800798829, [id number] Code(s): Z90.710 - ACQUIRED ABSENCE OF BOTH CERVIX AND UTERUS Status: Acute Current Visit: Yes - Problem List Review Problem List Initiated/Reviewed/Updated: Yes - My Orders Last 24 Hours: Active Orders 24 hr Category Date Time Status Patient Status [ADT] Routine ADT 08/13/21 11:04 Active Antiembolic Devices [RC] PER UNIT ROUTINE Care 08/13/21 11:04 Active May Shower [RC] ASDIRECTED Care 08/13/21 11:03 Active Notify Provider Intake and Out [RC] ASDIRECTED Care 08/13/21 11:04 Active Notify Provider Vital Signs [RC] ASDIRECTED Care 08/13/21 11:04 Active RT Incentive Spirometry [RC] Q2HWA Care 08/13/21 11:04 Active Ready for Discharge [RC] PER UNIT ROUTINE Care 08/14/21 08:50 Ordered Up With Assistance [RC] PER UNIT ROUTINE Care 08/13/21 11:04 Active Up ad Dali [RC] PER UNIT ROUTINE Care 08/13/21 11:04 Active VTE/DVT Education [RC] PER UNIT ROUTINE Care 08/13/21 11:06 Active Vital Signs [RC] PER UNIT ROUTINE Care 08/13/21 11:04 Active Regular Diet [DIET] Diet 08/13/21 Dinner Active Acetaminophen/oxyCODONE [Percocet 325-5 MG] Med 08/13/21 11:03 Active 1 tab PO Q4H PRN Acetaminophen/oxyCODONE [Percocet 325-5 MG] Med 08/13/21 11:03 Active 2 tab PO Q4H PRN Docusate Sodium [Colace] Med 08/13/21 21:00 Active 100 mg PO BID Enoxaparin [Lovenox] Med 08/14/21 09:00 Active 40 mg SUBCUT Q24H Lactated Ringers [Ringers, Lactated] 1,000 ml Med 08/13/21 11:15 Active IV ASDIRECTED Morphine Med 08/13/21 11:03 Active 4 mg IVPUSH Q2H PRN Ondansetron [Zofran] Med 08/13/21 11:03 Active 4 mg IVPUSH Q6H PRN Promethazine [Phenergan] Med 08/13/21 11:03 Active 25 mg IM Q6H PRN DVT/VTE Prophylaxis Reflex [OM.PC] Routine Oth 08/13/21 11:03 Ordered Peripheral IV Discontinue [OM.PC] Routine Oth 08/13/21 11:04 Ordered Sequential Compression Device [OM.PC] Per Unit Routine Oth 08/13/21 11:04 Ordered Resuscitation Status Routine Resus Stat 08/13/21 11:03 Ordered Medication Orders Docusate Sodium (Docusate Sodium 100 Mg Cap) 100 mg PO BID [facility] Last Admin: 08/14/21 08:18 Dose: 100 mg Documented by: Admin: 08/13/21 21:13 Dose: 100 mg Documented by: ÁNGEL Enoxaparin Sodium (Enoxaparin 40 Mg/0.4 Ml Syringe) 40 mg SUBCUT Q24H [facility] Last Admin: 08/14/21 08:19 Dose: 40 mg Documented by: SIMRAN Lactated Ringer's (Ringers, Lactated) 1,000 mls @ 125 mls/hr IV ASDIRECTED [facility] Last Admin: 08/13/21 15:00 Dose: 125 mls/hr Documented by: YESSY Morphine Sulfate (Morphine 4 Mg/Ml Vial) 4 mg IVPUSH Q2H PRN PRN Reason: Pain (severe 7-10) Ondansetron HCl (Ondansetron 4 Mg/2 Ml Sdv) 4 mg IVPUSH Q6H PRN PRN Reason: Nausea/Vomiting Oxycodone/Acetaminophen (Acetaminophen/Oxycodone 325-5 Mg Tab) 1 tab PO Q4H PRN PRN Reason: Pain (moderate 4-6) Oxycodone/Acetaminophen (Acetaminophen/Oxycodone 325-5 Mg Tab) 2 tab PO Q4H PRN PRN Reason: Pain (moderate 4-6) Promethazine HCl (Promethazine 25 Mg/Ml Sdv) 25 mg IM Q6H PRN PRN Reason: Nausea/Vomiting Sodium Chloride (Sodium Chloride 0.9% 10 Ml Syringe) 10 ml FLUSH ASDIRECTED PRN PRN Reason: Keep Vein Open Sodium Chloride (Sodium Chloride 0.9% 2.5 Ml Syringe) 2.5 ml FLUSH ASDIRECTED PRN PRN Reason: Keep Vein Open Sodium Chloride (Sodium Chloride 0.9% 20 Ml Sdv) 10 ml IV ASDIRECTED PRN PRN Reason: IV Use - Assessment Assessment (Free Text/Narrative):: POD 1 status post LAVH/bilateral salpingectomy/cystoscopy - Plan Plan (Free Text/Narrative):: Doing well overall. Pain is minimal, has not taken any percocet yet. She is ambulating and voiding. Feels ready to go home. Labs and VS are reassuring> Discharge instructions reviewed. Follow up at [facility] 2 and 6 weeks. Patient agrees to plan of care.
[2021-08-14] MEDS ORDERED: Enoxaparin 40 MG/0.4 ML Syringe SUBCUT SCH (09:00)
== END 2021-08-14 10:00 | disposition home or self-care (01) ==
LOC: MW.SDS 08:35 → MW.OB 11:33 → MW.SDS 08-14 10:00
PROVIDERS: ATTEND Obstetrics & Gynecology
DX: D25.1 Intramural leiomyoma of uterus (principal); N83.8 Other noninflammatory disorders of ovary, fallopian tube and broad ligament; D68.0 Von Willebrand disease; E03.9 Hypothyroidism, unspecified; E66.9 Obesity, unspecified; Z98.890 Other specified postprocedural states; Z79.899 Other long term (current) drug therapy; Z88.2 Allergy status to sulfonamides; Z68.37 Body mass index [BMI] 37.0-37.9, adult
CPT/HCPCS: 36415; 58552; 80048; 84703; 85025; 85027; 86850; 86900; 86901; A9270; J0690; J1100; J1170; J1650; J1885; J2250; J2704; J3010; J3490; J7030; J7120; 00944